=== PATIENT | female | born 1945 | race Caucasian/White ===

== ENCOUNTER 2020-09-06 14:18 | Outpatient (REF) | payer MEDICARE, SELFPAY ==
--- NOTE | ~2020-09-06 | MM_ITS ---
EXAMINATION: MM SCREENING DIGITAL BREAST TOMOSYNTHESIS, BILATERAL CLINICAL INFORMATION: Screening. Asymptomatic. The lifetime risk of breast cancer based on the Tyrer-Cuzick Model is 2.5%. COMPARISON: Mammography: May 28, 2019 and studies dating back to February 13, 2012 TECHNIQUE: Digital breast tomosynthesis is performed in both the craniocaudal and mediolateral oblique views along with computer-aided detection (CAD). Synthesized 2D images are generated from the tomosynthesis. FINDINGS: The breasts are almost entirely fatty (ACR BI-RADS breast composition Category a). There are no significant masses, abnormal calcifications, or other abnormalities. MM/MM tomosynthesis screening BI IMPRESSION: There are no significant changes from prior study. ASSESSMENT: BI-RADS 1: Negative RECOMMENDATION: Routine annual mammography screening. This patient's information was entered into a reminder system with a target due date for their next mammogram.
== END 2020-09-06 14:19 | disposition home or self-care (01) ==
LOC: HO.MAMMO 14:18
PROVIDERS: Visit Provider Internal Medicine
DX: Z12.31 Encounter for screening mammogram for malignant neoplasm of breast (principal)
CPT/HCPCS: 77063; 77067

== ENCOUNTER 2020-09-29 17:57 | Emergency (ER) | payer MEDICARE, SELFPAY ==
[2020-09-29 18:13] VITALS: BP 109/54; PULSE 82; RESP 16; TEMP 36.6; O2SAT 97; BMI 29.2
--- NOTE | 2020-09-29 18:43 | ECG_ITS ---
Test Reason : FALL Blood Pressure : / mmHG Vent. Rate : 082 BPM Atrial Rate : 082 BPM P-R Int : 112 ms QRS Dur : 116 ms QT Int : 402 ms P-R-T Axes : 048 031 030 degrees QTc Int : 469 ms Normal sinus rhythm Right bundle branch block Abnormal ECG When compared with ECG of 06-NOV-2019 19:17, No significant change was found Referred By: You Zamudio Electronically Signed By:DEEPIKA HODGSON MD
--- NOTE | 2020-09-29 18:43 | ED_ITS ---
HPI - Syncope General Chief Complaint: Fall Stated Complaint: Syncope Time Seen by Provider: 09/29/20 18:09 Source: patient and family Mode of arrival: ambulatory Limitations: no limitations History of Present Illness HPI narrative: Patient has significant history of dementia no known coronary artery disease been constipated for last 2 weeks after laxative went to bathroom today to move her bowels had a big bowel movement while having bowel movement patient almost passed out. Within few minutes patient back to normal no chest pain no diaphoresis no vomiting patient never had similar episode in the past MD complaint: felt faint and almost passed out Related Data Home Medications Medication Instructions Recorded Confirmed acetaminophen [Mapap Arthritis 2 tab PO Q8H PRN 09/04/20 09/04/20 Pain] alendronate 1 tab PO QWEEK 09/04/20 09/04/20 aspirin 1 tab PO DAILY 09/04/20 09/04/20 calcium carbonate-vitamin D3 1 tab PO DAILY 09/04/20 09/04/20 donepezil 1 tab PO DAILY 09/04/20 09/04/20 lisinopril-hydrochlorothiazide 1 tab PO DAILY 09/04/20 09/04/20 melatonin 1 tab PO BEDTIME 09/04/20 09/04/20 memantine 1 tab PO BID 09/04/20 09/04/20 multivitamin [Daily-Weston] 1 tab PO DAILY 09/04/20 09/04/20 Previous Rx's Medication Instructions Recorded diclofenac sodium 1 % topical gel 4 g TRANSDERMAL BID PRN #100 g 02/16/20 Allergies Allergy/AdvReac Type Severity Reaction Status Date / Time tuberculin, purified protein Allergy Mild RASH Unverified 01/06/20 17:21 deriva [From TUBERSOL] PPD Allergy Unknown Uncoded 09/23/19 00:00 Review of Systems Review of Systems: Per daughter limited ROS as patient is demented Constitutional : No Weight loss, No Fever, No Chills ENT/Mouth : No sore throat, No Rhinorrhea Eyes: No Eye Pain, No Swelling Cardiovascular : No Chest Pain, no palpitations Respiratory : No Cough, No Sputum, no shortness of breath Gastrointestinal : no Nausea, No Vomiting, No Diarrhea, No abdominal Pain, no black stools Genitourinary : No Dysuria, No Urinary Frequency Musculoskeletal : No joint pain, No Myalgias, No Joint Swelling Skin : No Skin Lesions, No rash Neuro : No Weakness, No Numbness, + Dizziness, No Headache Psych : No Anxiety/Panic, No Depression Heme/Lymph: No Bruising, No Lymphadenopathy Endocrine : No Polyuria, No Polydipsia All other systems reviewed and are negative [facility] Past Medical History Medical History AD (Alzheimer's disease) Arthritis Colon cancer Dementia Depression Diverticulosis Hypertension Surgical History H/O colonoscopy H/O: hysterectomy History of colon surgery Family History Family History Mother Hypertension Diabetes Sister Diabetes Social History Social History Alcohol intake: never Smoked in Last 30 Days: No Advance Directives: No Advance Directives Information Provided: No Physical Exam Vital Signs: Vital Signs: Last Vital Signs Temp 97.9 F 09/29/20 18:13 Pulse 82 09/29/20 18:13 Resp 16 09/29/20 18:13 BP 109/54 L 09/29/20 18:13 Pulse Ox 97 09/29/20 18:13 Body Mass Index 29.2 Appearance: Alert. Oriented X1-2. No acute distress. Eyes: PERRLA, No Nystagmus ENT: Pharynx normal. Oral Mucosa moist Neck: Normal inspection. Neck supple. CVS: Normal heart rate and rhythm. Pulses normal. Respiratory: No respiratory distress. Equal air entry bilateral, no wheezing/rales/rhonchi Abdomen: Soft and nontender. Bowel sounds are present, no mass palpable, no CVA tenderness Skin: Skin warm and dry. Normal skin color. Normal skin turgor. Extremities: No lower extremity edema. No calf tenderness Neuro: Oriented X 1-2. No motor deficit. No sensory deficit.No cerebellar signs , cranial nerves II-XII intact MDM - Syncope MDM Narrative Medical decision making narrative: Patient is syncope episode likely vasovagal secondary to pain in the abdomen while moving the bowels EKG is normal normal troponin patient back to normal will discharge patient home Lab Data Attestation: I reviewed the patient's lab results. Result diagrams: 09/29/20 18:58 09/29/20 18:58 Labs: Lab Results 09/29/20 09/29/20 09/29/20 Range/Units 18:58 18:58 18:58 WBC 10.1 (4.8-10.8) X10*3/uL RBC 4.49 (4.20-5.50) X10*6/uL Hgb 14.0 (12.0-16.0) g/dl Hct 42.8 (37-47) % MCV 95.3 (80-98) fL MCH 31.2 (27.0-33.0) pg MCHC 32.7 (31.0-35.0) g/dl RDW 12.5 (11.0-16.0) % Plt Count 206 (160-400) X10*3/uL MPV 10.6 (9.4-12.3) fL Immature Gran % (Auto) 0.3 (0.0-0.4) % Neut % (Auto) 75.1 H (45-73) % Lymph % (Auto) 14.2 L (20-40) % [place] % (Auto) 7.6 (2-11) % Eos % (Auto) 2.4 (0-4) % Baso % (Auto) 0.4 (0-2) % Lymph # (Auto) 1.4 (1.2-4.9) X10*3/uL [place] # (Auto) 0.8 (0.1-1.2) X10*3/uL Eos # (Auto) 0.2 (0.0-0.4) X10*3/uL Baso # (Auto) 0.0 (0.0-0.2) X10*3/uL Abs Immat Gran (auto) 0.03 (0.00-0.03) X10*3/uL Absolute Neuts (auto) 7.6 (2.0-8.3) X10*3/uL Absolute Nucleated RBC 0.000 (0.0-0.012) X10*3/uL Nucleated RBC % (auto) 0.0 (0.0-0.2) /100WBC Sodium 141 (135-145) mmol/L Potassium 3.5 (3.3-5.1) mmol/L Chloride 107 (96-108) mmol/L Carbon Dioxide 24 (22-29) mmol/L Anion Gap 14 (12-20) BUN 18 H (9-16) mg/dL Creatinine 0.97 (0.5-1.4) mg/dL Estim Creat Clear Calc 48.9 Estimated GFR 56 Random Glucose 107 D (60-115) mg/dL Calcium 8.9 D (8.4-10.2) mg/dL Troponin I High Sens 4.5 (<3.5-17.0) ng/L ECG Data Attestation: I personally reviewed and interpreted this ECG as follows: Interpretation: Normal sinus rhythm heart rate 82 beats per minute and right bundle-branch block no acute ST T wave changes normal axis no ischemia Discharge Plan Discharge Clinical Impression: Vasovagal near-syncope Patient Disposition: Home, Self-Care Instructions: Syncope in Older Adults (ED) Additional Instructions: A passing out episode is likely from the pain in the abdomen while having the bowel movement. Drink plenty of fluids report to the ER if any chest pain or further syncope episode Prescriptions: No Action diclofenac sodium 1 % gel 4 g transdermal BID PRN (Reason: pain) Qty: 100 RF: 4 multivitamin [Daily-Weston] Tablet 1 tab PO DAILY RF: 0 lisinopril-hydrochlorothiazide 20-12.5 mg tablet 1 tab PO DAILY RF: 0 donepezil 10 mg tablet 1 tab PO DAILY RF: 0 alendronate 70 mg tablet 1 tab PO QWEEK RF: 0 calcium carbonate-vitamin D3 600 mg(1,500mg) -200 unit tablet 1 tab PO DAILY RF: 0 aspirin 81 mg tablet,delayed release (DR/EC) 1 tab PO DAILY RF: 0 acetaminophen [Mapap Arthritis Pain] 650 mg tablet extended release 2 tab PO Q8H PRN (Reason: Pain) RF: 0 melatonin 1 mg tablet 1 tab PO BEDTIME RF: 0 memantine 10 mg tablet 1 tab PO BID RF: 0 Print Language: Kyrgyz
[2020-09-29 19:02] LABS: MANUAL DIFF FLAG NO
[2020-09-29 19:06] LABS: Basophils Percent Auto 0.4 % (0-2); Eosinophils Absolute Auto 0.2 X10*3/uL (0.0-0.4); Eosinophils Percent Auto 2.4 % (0-4); Hematocrit 42.8 % (37-47); Imm Gran Abs Auto 0.03 X10*3/uL (0.00-0.03); Imm Gran Pct Auto 0.3 % (0.0-0.4); Lymphocytes Absolute Auto 1.4 X10*3/uL (1.2-4.9); Lymphocytes Percent Auto 14.2 % (20-40); Mean Corpuscular HGB Conc 32.7 g/dl (31.0-35.0); Mean Corpuscular Hemoglobin 31.2 pg (27.0-33.0); Mean Corpuscular Volume 95.3 fL (80-98); Mean Platelet Volume 10.6 fL (9.4-12.3); Monocytes Absolute Auto 0.8 X10*3/uL (0.1-1.2); Monocytes Percent Auto 7.6 % (2-11); Neutrophils Absolute Auto 7.6 X10*3/uL (2.0-8.3); Neutrophils Percent Auto 75.1 % (45-73); Platelet Count 206 X10*3/uL (160-400); Red Blood Count 4.49 X10*6/uL (4.20-5.50); Red Cell Distribution Width 12.5 % (11.0-16.0); White Blood Count 10.1 X10*3/uL (4.8-10.8)
[2020-09-29 19:34] LABS: Anion Gap 14 (12-20); Blood Urea Nitrogen 18 mg/dL (9-16); Calcium 8.9 mg/dL (8.4-10.2); Carbon Dioxide 24 mmol/L (22-29); Chloride 107 mmol/L (96-108); Creatinine Clr Calc Pharmacy 48.9; Estimated Glomerular Filt Rate 56; Glucose Random 107 mg/dL (60-115); Potassium 3.5 mmol/L (3.3-5.1); Sodium 141 mmol/L (135-145)
[2020-09-29 19:40] LABS: Troponin-I High Sensitivity 4.5 ng/L (<3.5-17.0)
[2020-09-29 20:00] VITALS: BP 121/65; PULSE 73; RESP 23; TEMP 36.9; O2SAT 98
== END 2020-09-29 20:15 | disposition home or self-care (01) ==
PROVIDERS: Emergency Provider Internal Medicine
DX: R55 Syncope and collapse (principal); G30.9 Alzheimer's disease, unspecified; F02.80 Dementia in other diseases classified elsewhere, unspecified severity, without behavioral disturbance, psychotic disturbance, mood disturbance, and anxiety; I10 Essential (primary) hypertension
CPT/HCPCS: 36415; 80048; 84484; 85025; 93005; 99283; 99284

== ENCOUNTER 2021-01-15 12:32 | Inpatient (IN) | payer MEDICARE, SELFPAY ==
--- NOTE | ~2021-01-15 | CT_ITS ---
EXAMINATION: CT ABDOMEN AND PELVIS WITH CONTRAST CLINICAL INFORMATION: Right upper quadrant pain COMPARISON: Renal ultrasound 01/15/2017, CT abdomen pelvis 07/16/2012, CT abdomen with and without contrast 10/29/2006 TECHNIQUE: Multidetector volumetric images were obtained from the superior aspect of the liver through the pubic symphysis following administration 85 mL of Omnipaque 350 intravenous contrast. Sagittal and coronal reformatted images were obtained on the technologist's workstation. Oral contrast: No This CT examination was performed using dose optimization techniques as appropriate, variously including the following: *Automated exposure control *Adjustment of mA and/or kV according to patient size (this includes techniques or standardized protocols for targeted exams where dose is matched to indication/reason for exam; i.e. extremities or head) *Use of iterative reconstruction technique DLP: 528 mGy-cm FINDINGS: LUNG BASES: There is partial visualization of scarring or round atelectasis at the right lung base laterally which has increased in size from 9 mm on 07/16/2012 to 1.3 cm today. LIVER, GALLBLADDER, AND BILIARY TREE: The liver is normal in size, shape, and attenuation. 2 calcified granulomas again noted. No worrisome focal hepatic lesion or biliary ductal dilatation is present. Status post cholecystectomy. PANCREAS: Unremarkable. SPLEEN: Unremarkable. ADRENAL GLANDS: Unremarkable. KIDNEYS AND URETERS: The kidneys are normal in size, shape, and attenuation. The right upper pole renal cyst has dramatically decreased in size since the prior renal ultrasound in 2016 when this measured 13.5 cm in maximal dimension and on today's study measures 5.2 cm. No solid renal masses are seen No hydronephrosis, hydroureter, or calculi seen. No perinephric stranding. BLADDER: Unremarkable. GASTROINTESTINAL TRACT: Status post right partial hemicolectomy. Colonic diverticula are present without diverticulitis. The small and remaining large bowel are unremarkable. The appendix is is not present. ABDOMINAL WALL: No significant hernia is appreciated. LYMPH NODES: No retroperitoneal lymphadenopathy. VASCULAR: Calcific plaquing present in the infrarenal aorta and iliac vessels without aneurysm. PELVIC VISCERA: Surgically removed OSSEOUS STRUCTURES: Generalized osteopenia is present. Vertebral hemangiomas are again seen. No bony metastatic disease. CT/CT abdomen pelvis w con IMPRESSION: 1. Dramatic decrease in size of right upper pole benign renal cyst. Could this have ruptured? No free intraperitoneal fluid is present. 2. Again seen is an area of round atelectasis right lung increasing in size since 2013 hepatic granulomas, cholecystectomy, right hemicolectomy, colonic diverticulosis without diverticulitis and generalized osteopenia.
--- NOTE | ~2021-01-15 | XR_ITS ---
EXAMINATION: XR CHEST CLINICAL INFORMATION: Cough. COMPARISON: None TECHNIQUE: Frontal view of the chest was obtained. FINDINGS: There is normal thoracic kyphosis. The vertebral heights, alignment and disc heights are normal. There is moderate spondylosis mid dorsal spine. No lytic process. The paravertebral soft tissues are normal. XR/XR chest 1V IMPRESSION: No acute cardiopulmonary process seen. There is moderate spondylosis mid dorsal spine.
[2021-01-15 13:34] VITALS: BP 94/73; PULSE 104; RESP 17; TEMP 36; BMI 27.9
--- NOTE | 2021-01-15 13:54 | ED.WEAKNESS ---
HPI - Weakness General Chief complaint: General Medical Stated complaint: FTT Time Seen by Provider: 01/15/21 13:53 Source: patient and family Mode of arrival: ambulatory Limitations: other (Patient altered, unable to answer any questions.) History of Present Illness HPI Narrative: 75-year-old female with a past medical history of colon cancer, hypertension and dementia presents to the emergency department with 4 days of failure to thrive. She is accompanied by her daughter at the bedside who is answering all questions, since patient is unable to answer any questions. She states that for the past 4 days her mother has not been eating or drinking. She also reports that she has had a productive cough of white sputum for the past 4 days, and sometimes she coughs so hard that she vomits. She also notes that her mom has been complaining of right upper quadrant pain/rib pain, she states she has not fallen, and has had no trauma to the area. Over the past week or so, she has also noted that her mom's urine is darker than usual, but she has not noted a strong smell. She has been vaccinated against COVID-19, and her daughter is her primary healthcare economics consultant. According to the daughter she is usually able to say her name, and at times recognize close family. However she has been altered and unable to do this over the past few days MD Complaint: lack of energy Onset (ago): day(s) (4) Duration: constant Location: generalized Relieving factors: none Exacerbating factors: none Associated symptoms: nausea/vomiting (X1 post coughing ) and other (RUQ abdominal pain/rib pain, cough) Related Data Home Medications Medication Instructions Recorded Confirmed alendronate 70 mg tablet 1 tab PO QWEEK 09/04/20 01/15/21 aspirin 81 mg tablet,delayed 1 tab PO DAILY 09/04/20 01/15/21 release calcium carbonate 600 mg (1,500 1 tab PO DAILY 09/04/20 01/15/21 mg)-vitamin D3 200 unit tablet donepezil 10 mg tablet 1 tab PO DAILY 09/04/20 01/15/21 lisinopril 20 1 tab PO DAILY 09/04/20 01/15/21 mg-hydrochlorothiazide 12.5 mg tablet melatonin 1 mg tablet 1 tab PO BEDTIME PRN 09/04/20 01/15/21 memantine 10 mg tablet 1 tab PO BID 09/04/20 01/15/21 multivitamin (Daily-Weston) 1 tab PO DAILY 09/04/20 01/15/21 mirtazapine 7.5 mg tablet 1 tab PO BEDTIME 01/15/21 01/15/21 Allergies Allergy/AdvReac Type Severity Reaction Status Date / Time tuberculin, purified protein Allergy Mild RASH Unverified 01/06/20 17:21 deriva [From TUBERSOL] PPD Allergy Unknown Uncoded 09/23/19 00:00 Review of Systems Review of Systems: Constitutional : No Fever, No Chills, +faliure to thrive ENT/Mouth : No oral swelling, No Swallowing Difficulty Eyes: No Eye Pain, No Swelling, No Redness Cardiovascular : No Chest Pain, No SOB Respiratory : + Cough, + Sputum, No Wheezing, No Smoke Exposure, No Dyspnea Gastrointestinal : No Nausea, + Vomiting, No Diarrhea, + abdominal Pain RUQ Genitourinary : No Dysuria, No Urinary Frequency, No Hematuria, +dark urine Musculoskeletal : No joint pain, No Myalgias, No Joint Swelling Skin : No Skin Lesions, positive rash Neuro : No Weakness, No Numbness, No Headache All other systems reviewed and are negative PMFSH Past Medical History Medical History AD (Alzheimer's disease) Arthritis Colon cancer Dementia Depression Diverticulosis Hypertension Surgical History H/O colonoscopy H/O: hysterectomy History of colon surgery Family History Family History Mother Hypertension Diabetes Sister Diabetes Social History Social History Alcohol intake: never Patient Tobacco Use Status: Tobacco use Unknown Use of substances other than those prescribed or required for medical reasons: Unknown Advance Directives: Yes Advance Directives Information Provided: Yes Advance Directives on File: No Physical Exam Vital Signs: Vital Signs: Last Vital Signs Temp 96.8 F 01/15/21 13:34 Pulse 104 H 01/15/21 13:34 Resp 17 01/15/21 13:34 BP 94/73 01/15/21 13:34 Body Mass Index 27.9 Appearance: Alert. patient calm and disoriented unable to tell me her name or date of . No acute distress. Eyes: Pupils equal, round and reactive to light. ENT: Pharynx normal. Neck: Normal inspection. Neck supple. CVS: Fast regular rhythm likley sinus tachycardia. Pulses normal. Respiratory: No respiratory distress. Breath sounds normal. Abdomen: Soft and + tenderness to the right upper quadrant ? lipoma under right breast Skin: Skin warm and dry. Normal skin color. Normal skin turgor. Extremities: No lower extremity edema. No calf ttp Neuro: Oriented X 3. No motor deficit. No sensory deficit. Course Course Course Narrative: 1523- patients lactic 2.9 hydrated with 2L of fluid lactic acidosis likely due to dehydration and not infection or severe sepsis signed out pending further workup to Dr. Stinson MDM - Weakness MDM Narrative Medical decision making narrative: 75-year-old female past medical history of dementia, hypertension presenting to the emergency department with 4 days of failure to thrive, anorexia and productive cough. Patient's daughter is at the bedside which provided us with information, she states that her daughter told her she is experiencing right upper quadrant pain but did not say much more. She has not eaten or drank over the past 4 days. She also reports episodes of post-tussive emesis. And her daughter states that her mom's urine has been darker than usual over the past week. She lives at home, and her daughters her primary healthcare economics consultant Plan- EKG, Straight cath, CT of abd/pelvis with contrast, CXR, bnp, lactic, cultures, liver, UA, BMP, CBC, covid, lipase, mag, trop. Lab Data Result diagrams: 01/15/21 14:32 01/15/21 15:10 Labs: Lab Results 01/15/21 01/15/21 01/15/21 Range/Units 14:32 14:32 14:32 WBC 6.9 (4.8-10.8) X10*3/uL RBC 5.51 H D (4.20-5.50) X10*6/uL Hgb 16.8 H (12.0-16.0) g/dl Hct 52.8 H D (37-47) % MCV 95.8 (80-98) fL MCH 30.5 (27.0-33.0) pg MCHC 31.8 (31.0-35.0) g/dl RDW 13.9 (11.0-16.0) % Plt Count 180 (160-400) X10*3/uL MPV 12.2 (9.4-12.3) fL Immature Gran % (Auto) 0.4 (0.0-0.4) % Neut % (Auto) 57.3 (45-73) % Lymph % (Auto) 26.7 (20-40) % [place] % (Auto) 9.1 (2-11) % Eos % (Auto) 5.8 H (0-4) % Baso % (Auto) 0.7 (0-2) % Lymph # (Auto) 1.9 (1.2-4.9) X10*3/uL [place] # (Auto) 0.6 (0.1-1.2) X10*3/uL Eos # (Auto) 0.4 (0.0-0.4) X10*3/uL Baso # (Auto) 0.1 (0.0-0.2) X10*3/uL Abs Immat Gran (auto) 0.03 (0.00-0.03) X10*3/uL Absolute Neuts (auto) 4.0 (2.0-8.3) X10*3/uL Absolute Nucleated RBC 0.000 (0.0-0.012) X10*3/uL Nucleated RBC % (auto) 0.0 (0.0-0.2) /100WBC Sodium (135-145) mmol/L Potassium (3.3-5.1) mmol/L Chloride (96-108) mmol/L Carbon Dioxide (22-29) mmol/L Anion Gap (12-20) BUN (9-16) mg/dL Creatinine (0.5-1.4) mg/dL Estim Creat Clear Calc Estimated GFR Random Glucose (60-115) mg/dL Lactic Acid 2.9 H* (0.5-2.0) mmol/L Calcium (8.4-10.2) mg/dL Magnesium (1.6-2.6) mg/dL Total Bilirubin (0.0-1.0) mg/dL Direct Bilirubin (0.0-0.5) mg/dL AST (5-31) U/L ALT (0-31) U/L Alkaline Phosphatase (39-117) U/L Troponin I High Sens 7.6 D (<3.5-17.0) ng/L B-Natriuretic Peptide 22 (<100) pg/mL Total Protein (6.5-8.0) g/dL Albumin (3.5-5.0) g/dL Lipase (8-78) U/L COVID-19 ([facility]URNET) (Negative) COVID-19 Clin Com 01/15/21 01/15/21 01/15/21 Range/Units 14:32 14:32 15:10 WBC (4.8-10.8) X10*3/uL RBC (4.20-5.50) X10*6/uL Hgb (12.0-16.0) g/dl Hct (37-47) % MCV (80-98) fL MCH (27.0-33.0) pg MCHC (31.0-35.0) g/dl RDW (11.0-16.0) % Plt Count (160-400) X10*3/uL MPV (9.4-12.3) fL Immature Gran % (Auto) (0.0-0.4) % Neut % (Auto) (45-73) % Lymph % (Auto) (20-40) % [place] % (Auto) (2-11) % Eos % (Auto) (0-4) % Baso % (Auto) (0-2) % Lymph # (Auto) (1.2-4.9) X10*3/uL [place] # (Auto) (0.1-1.2) X10*3/uL Eos # (Auto) (0.0-0.4) X10*3/uL Baso # (Auto) (0.0-0.2) X10*3/uL Abs Immat Gran (auto) (0.00-0.03) X10*3/uL Absolute Neuts (auto) (2.0-8.3) X10*3/uL Absolute Nucleated RBC (0.0-0.012) X10*3/uL Nucleated RBC % (auto) (0.0-0.2) /100WBC Sodium 151 H (135-145) mmol/L Potassium 3.6 (3.3-5.1) mmol/L Chloride 113 H (96-108) mmol/L Carbon Dioxide 22 (22-29) mmol/L Anion Gap 20 (12-20) BUN 29 H D (9-16) mg/dL Creatinine 0.91 (0.5-1.4) mg/dL Estim Creat Clear Calc 52.8 Estimated GFR 60 Random Glucose 95 (60-115) mg/dL Lactic Acid (0.5-2.0) mmol/L Calcium 9.6 D (8.4-10.2) mg/dL Magnesium 2.1 (1.6-2.6) mg/dL Total Bilirubin 1.0 (0.0-1.0) mg/dL Direct Bilirubin 0.5 (0.0-0.5) mg/dL AST 17 (5-31) U/L ALT 9 (0-31) U/L Alkaline Phosphatase 65 D (39-117) U/L Troponin I High Sens (<3.5-17.0) ng/L B-Natriuretic Peptide Cancelled (<100) pg/mL Total Protein 6.8 (6.5-8.0) g/dL Albumin 4.1 (3.5-5.0) g/dL Lipase 36 (8-78) U/L COVID-19 ([facility]URENT) Negative (Negative) COVID-19 Clin Com See Note ECG Data Attestation: I personally reviewed and interpreted this ECG as follows: ECG interpretation date: 01/15/21 ECG interpretation time: 14:24 Interpretation: Rate: 80 Rhythm: NSR [place]: normal Normal P waves. Normal LARA. incomplete RBBB ST T wave : inverted inf leads, no JAREN qTC: normal prior studies: no acute ischemia The study has been interpreted contemporaneously by me. . Discharge Plan Discharge Clinical Impression: Acute dehydration, Adult failure to thrive, Acidosis, lactic Prescriptions: No Action multivitamin [Daily-Weston] Tablet 1 tab PO DAILY RF: 0 lisinopril-hydrochlorothiazide 20-12.5 mg tablet 1 tab PO DAILY RF: 0 donepezil 10 mg tablet 1 tab PO DAILY RF: 0 alendronate 70 mg tablet 1 tab PO QWEEK RF: 0 calcium carbonate-vitamin D3 600 mg(1,500mg) -200 unit tablet 1 tab PO DAILY RF: 0 aspirin 81 mg tablet,delayed release (/EC) 1 tab PO DAILY RF: 0 melatonin 1 mg tablet 1 tab PO BEDTIME PRN (Reason: Sleep) RF: 0 memantine 10 mg tablet 1 tab PO BID RF: 0 mirtazapine 7.5 mg tablet 1 tab PO BEDTIME RF: 0
--- NOTE | 2021-01-15 14:01 | ECG_ITS ---
Test Reason : FALL Blood Pressure : / mmHG Vent. Rate : 080 BPM Atrial Rate : 080 BPM P-R Int : 120 ms QRS Dur : 102 ms QT Int : 402 ms P-R-T Axes : 058 014 -20 degrees QTc Int : 463 ms Normal sinus rhythm Incomplete right bundle branch block ST & T wave abnormality, consider inferior ischemia Abnormal ECG When compared with ECG of 29-SEP-2020 19:04, T wave inversion now evident in Inferior leads Referred By: Lyndsay Velarde Electronically Signed By:IDA WU
[2021-01-15] MEDS: 0.9 % Sodium Chloride 1,000 ML 999 ML IVCONT ×2 (14:43→18:27)
[2021-01-15 14:44] LABS: MANUAL DIFF FLAG NO
--- NOTE | 2021-01-15 14:44 | PC.NURSE ---
Pt is primarily ugandan speaking and is confused per family member in the room. IV established and labs sent. However, unable to get pt on property assessment monitor or straight cath her for a urine. Pt flailing her arms with any further attempt to care. Pt's family member remains at the bedside and NS is infusing.
[2021-01-15 14:47] LABS: Basophils Absolute Auto 0.1 X10*3/uL (0.0-0.2); Basophils Percent Auto 0.7 % (0-2); Eosinophils Absolute Auto 0.4 X10*3/uL (0.0-0.4); Eosinophils Percent Auto 5.8 % (0-4); Hematocrit 52.8 % (37-47); Hemoglobin 16.8 g/dl (12.0-16.0); Imm Gran Abs Auto 0.03 X10*3/uL (0.00-0.03); Imm Gran Pct Auto 0.4 % (0.0-0.4); Lymphocytes Absolute Auto 1.9 X10*3/uL (1.2-4.9); Lymphocytes Percent Auto 26.7 % (20-40); Mean Corpuscular HGB Conc 31.8 g/dl (31.0-35.0); Mean Corpuscular Hemoglobin 30.5 pg (27.0-33.0); Mean Corpuscular Volume 95.8 fL (80-98); Mean Platelet Volume 12.2 fL (9.4-12.3); Monocytes Absolute Auto 0.6 X10*3/uL (0.1-1.2); Monocytes Percent Auto 9.1 % (2-11); Neutrophils Percent Auto 57.3 % (45-73); Platelet Count 180 X10*3/uL (160-400); Red Blood Count 5.51 X10*6/uL (4.20-5.50); Red Cell Distribution Width 13.9 % (11.0-16.0); White Blood Count 6.9 X10*3/uL (4.8-10.8)
[2021-01-15 15:08] LABS: B Type Natriuretic Peptide 22 pg/mL (<100); Troponin-I High Sensitivity 7.6 ng/L (<3.5-17.0)
[2021-01-15 15:13] LABS: COVID-19 Test Negative (Negative)
[2021-01-15 15:14] LABS: Lactic Acid 2.9 mmol/L (0.5-2.0)
--- NOTE | 2021-01-15 15:37 | PHA.MEDREC ---
Pharmacy Consult ? Medication Reconciliation Pharmacy has completed the medication reconciliation. spoke to family member at bedside. Pt has dementia. Verified meds with family, except she did not know the day of the week for the alendronate.
[2021-01-15 15:57] LABS: Alanine Aminotransferase 9 U/L (0-31); Albumin Level 4.1 g/dL (3.5-5.0); Alkaline Phosphatase 65 U/L (39-117); Anion Gap 20 (12-20); Aspartate Amino Transferase 17 U/L (5-31); Bilirubin Direct 0.5 mg/dL (0.0-0.5); Blood Urea Nitrogen 29 mg/dL (9-16); Calcium 9.6 mg/dL (8.4-10.2); Carbon Dioxide 22 mmol/L (22-29); Chloride 113 mmol/L (96-108); Creatinine Clr Calc Pharmacy 52.8; Estimated Glomerular Filt Rate 60; Glucose Random 95 mg/dL (60-115); Lipase 36 U/L (8-78); Magnesium 2.1 mg/dL (1.6-2.6); Potassium 3.6 mmol/L (3.3-5.1); Sodium 151 mmol/L (135-145); Total Protein 6.8 g/dL (6.5-8.0)
[2021-01-15 16:37] LABS: Appearance Urine CLEAR; Color Urine DK YELLOW; Glucose Urine UA NEG (NEG); Leukocyte Esterase Urine NEG (NEG); Nitrite Urine NEG (NEG); Specific Gravity - Urine >= 1.030 (1.005-1.025); UACC Culture Trigger NO; Urine Blood NEG (NEG); Urine Ketones 40 MG/DL (NEG); Urine Protein 2+ MG/DL (NEG-TRACE)
[2021-01-15 16:37] LABS: Reflex Lactate? Lactic Acid Added
[2021-01-15 16:47] LABS: Bacteria Urine 3+ /LPF; Squamous Epithelial Cell Urine 1+ /LPF
[2021-01-15 16:48] LABS: Calcium Oxalate Crystals Urine TRACE /LPF
[2021-01-15 16:49] LABS: Amorphous Sediment Urine TRACE /LPF; Granular Casts Urine 0-2 /LPF
[2021-01-15 17:03] LABS: ~Lactic Acid-LAB USE ONLY 1.8 mmol/L (0.5-2.0)
[2021-01-15] MEDS: iohexoL 350 MG/ML 100 ML INFUS..BTL IV (17:12)
[2021-01-15 17:26] VITALS: BP 143/71; PULSE 66; RESP 18; O2SAT 100
--- NOTE | 2021-01-15 17:27 | PM.IMHP ---
History of Present Illness Date of Service: 01/15/21 Attending physician on admission: Anup Grimaldo Chief Complaint: FTT/Hyperglycemia 75-year-old female presents with poor p.o. intake and high sodium in the backdrop of known Alzheimer's dementia. She is [place]ian-speaking, but when spoke with daughter states mom over the last 4 days has decreased her p.o. intake and has gotten more lethargic. She did complain of some mild diffuse abdominal pain at home (CT pending). In the emergency room laboratory evaluation significant for sodium 151 for which she received 1 L half normal saline. At this time admission is requested Review of Systems Review of Systems: Denies chest pain Denies shortness of breath Denies nausea vomiting diarrhea PMFSH Medical History AD (Alzheimer's disease) Arthritis Colon cancer Dementia Depression Diverticulosis Hypertension Family History Mother Hypertension Diabetes Sister Diabetes Pertinent family history: . Surgical History H/O colonoscopy H/O: hysterectomy History of colon surgery Social History Alcohol intake: never Patient Tobacco Use Status: Tobacco use Unknown Use of substances other than those prescribed or required for medical reasons: Unknown Advance Directives: Yes Advance Directives Information Provided: Yes Advance Directives on File: No Meds Allergies Allergy/AdvReac Type Severity Reaction Status Date / Time tuberculin, purified protein Allergy Mild RASH Unverified 01/06/20 17:21 deriva [From TUBERSOL] PPD Allergy Unknown Uncoded 09/23/19 00:00 Active Medications: Current Medications Pharmacy Consult (Consult Rx Perform Med Rec) 1 each MISCELLANE ONCE PRN PRN Reason: Consult order Home Medications Medication Instructions Recorded Confirmed Last Taken Type alendronate 70 mg tablet 1 tab PO QWEEK 09/04/20 01/15/21 Unknown History aspirin 81 mg tablet,delayed 1 tab PO DAILY 09/04/20 01/15/21 Unknown History release calcium carbonate 600 mg (1,500 1 tab PO DAILY 09/04/20 01/15/21 Unknown History mg)-vitamin D3 200 unit tablet donepezil 10 mg tablet 1 tab PO DAILY 09/04/20 01/15/21 Unknown History lisinopril 20 1 tab PO DAILY 09/04/20 01/15/21 Unknown History mg-hydrochlorothiazide 12.5 mg tablet melatonin 1 mg tablet 1 tab PO BEDTIME PRN 09/04/20 01/15/21 Unknown History memantine 10 mg tablet 1 tab PO BID 09/04/20 01/15/21 Unknown History multivitamin (Daily-[facility]on) 1 tab PO DAILY 09/04/20 01/15/21 Unknown History mirtazapine 7.5 mg tablet 1 tab PO BEDTIME 01/15/21 01/15/21 Unknown History Physical Exam Vital Signs and Narrative: Vital Signs: Last Vital Signs Temp 96.8 F 01/15/21 13:34 Pulse 66 01/15/21 17:26 Resp 18 01/15/21 17:26 BP 143/71 H 01/15/21 17:26 Pulse Ox 100 01/15/21 17:26 Body Mass Index 27.9 Const: Other: She is awake and responding to the daughter in [place]ian. She appears in no acute distress HENMT: Other: Oropharynx dry; posterior pharynx clear Resp: Auscultation: clear to auscultation bilaterally, no rales, no rhonchi and no wheezes Cardio: Jugular venous distension: no JVD Rate: regular rate Rhythm: regular rhythm Heart sounds: S1 normal heart sound present, S2 normal heart sound present and no murmurs GI: Other: Soft nontender nondistended with normoactive bowel sounds. There is no appreciable hepatosplenomegaly. There are no acute peritoneal signs Neuro: Other: [place]ian-speaking; move in all extremities with purpose interacting appropriately with daughter Extrem: General: Yes normal to inspection Results Labs CBC and Chem 7: 01/15/21 14:32 01/15/21 15:10 Labs: Laboratory Results - last 24 hr 01/15/21 01/15/21 01/15/21 14:32 14:32 14:32 MCV 95.8 MCH 30.5 MCHC 31.8 RDW 13.9 Plt Count 180 MPV 12.2 Immature Gran % (Auto) 0.4 Neut % (Auto) 57.3 Lymph % (Auto) 26.7 [place] % (Auto) 9.1 Eos % (Auto) 5.8 H Baso % (Auto) 0.7 Lymph # (Auto) 1.9 [place] # (Auto) 0.6 Eos # (Auto) 0.4 Baso # (Auto) 0.1 Abs Immat Gran (auto) 0.03 Absolute Neuts (auto) 4.0 Absolute Nucleated RBC 0.000 Nucleated RBC % (auto) 0.0 Anion Gap Estim Creat Clear Calc Estimated GFR Random Glucose Lactic Acid 2.9 H* Lactic Acid Fup @ 2Hr Calcium Magnesium Total Bilirubin Direct Bilirubin AST ALT Alkaline Phosphatase Troponin I High Sens 7.6 D B-Natriuretic Peptide 22 Total Protein Albumin Lipase Urine Color Urine Appearance Urine pH Ur Specific [place] Urine Protein Urine Glucose (UA) Urine Ketones Urine Blood Urine Nitrite Ur Leukocyte Esterase Urine RBC Urine WBC Ur Squamous Epith Cells Calcium Oxalate Crystal Amorphous Sediment Urine Bacteria Granular Casts COVID-19 ([facility]) COVID-19 Clin Com 01/15/21 01/15/21 01/15/21 14:32 14:32 14:33 MCV MCH MCHC RDW Plt Count MPV Immature Gran % (Auto) Neut % (Auto) Lymph % (Auto) [place] % (Auto) Eos % (Auto) Baso % (Auto) Lymph # (Auto) [place] # (Auto) Eos # (Auto) Baso # (Auto) Abs Immat Gran (auto) Absolute Neuts (auto) Absolute Nucleated RBC Nucleated RBC % (auto) Anion Gap Estim Creat Clear Calc Estimated GFR Random Glucose Lactic Acid Lactic Acid Fup @ 2Hr Calcium Magnesium Total Bilirubin Direct Bilirubin AST ALT Alkaline Phosphatase Troponin I High Sens B-Natriuretic Peptide Cancelled Total Protein Albumin Lipase Urine Color DK YELLOW Urine Appearance CLEAR Urine pH 6.0 Ur Specific [place] >= 1.030 H Urine Protein 2+ H Urine Glucose (UA) NEG Urine Ketones 40 Urine Blood NEG Urine Nitrite NEG Ur Leukocyte Esterase NEG Urine RBC 1-4 Urine WBC 1-4 Ur Squamous Epith Cells 1+ Calcium Oxalate Crystal TRACE Amorphous Sediment TRACE Urine Bacteria 3+ Granular Casts 0-2 COVID-19 ([facility]ENT) Negative COVID-19 Clin Com See Note 01/15/21 01/15/21 15:10 16:46 MCV MCH MCHC RDW Plt Count MPV Immature Gran % (Auto) Neut % (Auto) Lymph % (Auto) [place] % (Auto) Eos % (Auto) Baso % (Auto) Lymph # (Auto) [place] # (Auto) Eos # (Auto) Baso # (Auto) Abs Immat Gran (auto) Absolute Neuts (auto) Absolute Nucleated RBC Nucleated RBC % (auto) Anion Gap 20 Estim Creat Clear Calc 52.8 Estimated GFR 60 Random Glucose 95 Lactic Acid Lactic Acid Fup @ 2Hr 1.8 Calcium 9.6 D Magnesium 2.1 Total Bilirubin 1.0 Direct Bilirubin 0.5 AST 17 ALT 9 Alkaline Phosphatase 65 D Troponin I High Sens B-Natriuretic Peptide Total Protein 6.8 Albumin 4.1 Lipase 36 Urine Color Urine Appearance Urine pH Ur Specific [place] Urine Protein Urine Glucose (UA) Urine Ketones Urine Blood Urine Nitrite Ur Leukocyte Esterase Urine RBC Urine WBC Ur Squamous Epith Cells Calcium Oxalate Crystal Amorphous Sediment Urine Bacteria Granular Casts COVID-19 ([facility]ENT) COVID-19 Clin Com Imaging Radiologist's Impressions: Impressions Chest X-Ray 01/15/21 14:02 IMPRESSION: No acute cardiopulmonary process seen. There is moderate spondylosis mid dorsal spine. Assessment and Plan (1) Adult failure to thrive: Status: Acute (2) Hypernatremia: Status: Acute 70 seconds urine year old female with known history of dementia status post colon cancer with chemotherapy presents with decreased p.o. intake over the last 4 days with increasing confusion. Emergency room workup consistent for a sodium 151. CT abdomen pending 1. Hypernatremia Given 1 L of half normal saline in the emergency room. Will continue the same overnight at 100 an hour check labs in the morning. Encourage p.o. intake 2. Dementia Continue outpatient therapies 3. Hypertension Continue outpatient therapies. 4. DVT prophylaxis Venodyne boots... Full code Further plans based on clinical course and response to therapies Quality Stroke Does the patient have a stroke diagnosis?: No VTE Prior VTE?: No VTE Risk Level:: Medical - moderate - high VTE Device Contraindication: N/A - Device Ordered VTE Drug Contraindication: Treatment Not Indicated
[2021-01-15 18:47] VITALS: BP 148/115; PULSE 69; RESP 17; TEMP 36.5; O2SAT 96
[2021-01-15 19:38] VITALS: BP 142/88; PULSE 78; RESP 15; TEMP 36.2; O2SAT 93
[2021-01-15] MEDS: Sodium Chloride 0.45 % 1,000 ML 100 ML IVCONT (20:24)
[2021-01-16] VITALS: BP 147/83; PULSE 58; RESP 15; TEMP 36.2; O2SAT 99
[2021-01-16 03:54] VITALS: BP 146/72; PULSE 59; RESP 15; TEMP 36; O2SAT 100
[2021-01-16 05:30] LABS: MANUAL DIFF FLAG NO
[2021-01-16 05:34] LABS: Basophils Absolute Auto 0.1 X10*3/uL (0.0-0.2); Basophils Percent Auto 0.6 % (0-2); Eosinophils Percent Auto 12.8 % (0-4); Hematocrit 46.2 % (37-47); Imm Gran Abs Auto 0.04 X10*3/uL (0.00-0.03); Imm Gran Pct Auto 0.5 % (0.0-0.4); Lymphocytes Absolute Auto 2.8 X10*3/uL (1.2-4.9); Lymphocytes Percent Auto 35.8 % (20-40); Mean Corpuscular HGB Conc 32.5 g/dl (31.0-35.0); Mean Corpuscular Hemoglobin 30.8 pg (27.0-33.0); Mean Corpuscular Volume 94.9 fL (80-98); Mean Platelet Volume 12.2 fL (9.4-12.3); Monocytes Absolute Auto 0.8 X10*3/uL (0.1-1.2); Monocytes Percent Auto 9.9 % (2-11); Neutrophils Absolute Auto 3.1 X10*3/uL (2.0-8.3); Neutrophils Percent Auto 40.4 % (45-73); Platelet Count 141 X10*3/uL (160-400); Red Blood Count 4.87 X10*6/uL (4.20-5.50); Red Cell Distribution Width 13.8 % (11.0-16.0); White Blood Count 7.8 X10*3/uL (4.8-10.8)
[2021-01-16] MEDS: Sodium Chloride 0.45 % 1,000 ML 100 ML IVCONT (05:47)
[2021-01-16 05:54] LABS: Anion Gap 17 (12-20); Blood Urea Nitrogen 19 mg/dL (9-16); Calcium 8.7 mg/dL (8.4-10.2); Carbon Dioxide 20 mmol/L (22-29); Chloride 111 mmol/L (96-108); Creatinine Clr Calc Pharmacy 69.7; Estimated Glomerular Filt Rate > 60; Glucose Random 72 mg/dL (60-115); Potassium 3.1 mmol/L (3.3-5.1); Sodium 145 mmol/L (135-145)
[2021-01-16 07:24] VITALS: BP 146/80; PULSE 61; RESP 18; TEMP 36.1; O2SAT 100
--- NOTE | 2021-01-16 10:04 | P.PNIM_ITS ---
Subjective Subjective Date of Service: 01/16/21 Interval History: No acute issues overnight. Tolerating IV fluids. Continues to refuse oral fluids/medication. Are daughter at bedside since admission yes Review of Systems Denies chest pain Denies shortness of breath Denies nausea vomiting diarrhea Physical Exam Vital Signs: Vital Signs: Last Vital Signs Temp 97.0 F 01/16/21 07:24 Pulse 61 01/16/21 07:24 Resp 18 01/16/21 07:24 BP 146/80 H 01/16/21 07:24 Pulse Ox 100 01/16/21 07:24 Body Mass Index 27.9 Const: Other: She is awake and responding to the daughter in Colombian. She appears in no acute distress HENMT: Other: Membranes moist this a.m. Resp: Auscultation: clear to auscultation bilaterally, no rales, no rhonchi and no wheezes Cardio: Jugular venous distension: no JVD Rate: regular rate Rhythm: regular rhythm Heart sounds: S1 normal heart sound present, S2 normal heart sound present and no murmurs GI: Other: Soft nontender nondistended with normoactive bowel sounds. There is no appreciable hepatosplenomegaly. There are no acute peritoneal signs Neuro: Other: Colombian-speaking; move in all extremities with purpose interacting appropriately with daughter Extrem: General: Yes normal to inspection Objective Data Active Medications Acetaminophen (Acetaminophen 325 Mg Tablet) 650 mg PO Q6H PRN PRN Reason: Pain, Mild (Pain Scale 1-3) Aspirin (Aspirin Enteric Coated 81 Mg Tablet.) 81 mg PO DAILY [facility] Last Admin: 01/16/21 08:40 Dose: Not Given Documented by: XIAO Non-Admin Reason: Patient Refused Calcium Carbonate/Cholecalciferol (Calcium + Vitamin D 250 Mg Tablet) 500 mg PO DAILY [facility] Last Admin: 01/16/21 08:40 Dose: Not Given Documented by: XIAO Non-Admin Reason: Patient Refused Donepezil HCl (Donepezil Hcl 10 Mg Tablet) 10 mg PO DAILY [facility] Last Admin: 01/16/21 08:39 Dose: Not Given Documented by: XIAO Non-Admin Reason: Patient Refused Sodium Chloride () 1,000 mls @ 100 mls/hr IVCONT .Q10H [facility] Last Admin: 01/16/21 05:47 Dose: 100 mls/hr Documented by: STALIN Lisinopril (Lisinopril 20 Mg Tablet) 20 mg PO DAILY [facility] Last Admin: 01/16/21 08:39 Dose: Not Given Documented by: XIAO Non-Admin Reason: Patient Refused Melatonin (Melatonin 3 Mg Tablet) 3 mg PO BEDTIME PRN PRN Reason: Sleep Memantine (Memantine Hcl 10 Mg Tablet) 10 mg PO BID [facility] Last Admin: 01/16/21 08:40 Dose: Not Given Documented by: XIAO Non-Admin Reason: Patient Refused Mirtazapine (Mirtazapine 7.5 Mg Tablet) 7.5 mg PO BEDTIME [facility] Last Admin: 01/15/21 21:09 Dose: Not Given Documented by: STALIN Non-Admin Reason: Patient Refused Multivitamins/Vitamin C (Multivitamin Tablet) 1 tab PO DAILY [facility] Last Admin: 01/16/21 08:40 Dose: Not Given Documented by: XIAO Non-Admin Reason: Patient Refused Pharmacy Consult (Consult Rx Perform Med Rec) 1 each MISCELLANE ONCE PRN PRN Reason: Consult order Sodium Chloride (0.9 % Sodium Chloride Flush 3 Ml Syringe) 3 ml IVFLUSH QSHIFT [facility] Last Admin: 01/16/21 08:39 Dose: Not Given Documented by: XIAO Non-Admin Reason: IV Running Labs CBC & Chem 7: 01/16/21 05:21 01/16/21 05:21 Labs: Laboratory Results - last 24 hr 01/15/21 01/15/21 01/15/21 14:32 14:32 14:32 MCV 95.8 MCH 30.5 MCHC 31.8 RDW 13.9 Plt Count 180 MPV 12.2 Immature Gran % (Auto) 0.4 Neut % (Auto) 57.3 Lymph % (Auto) 26.7 [place] % (Auto) 9.1 Eos % (Auto) 5.8 H Baso % (Auto) 0.7 Lymph # (Auto) 1.9 [place] # (Auto) 0.6 Eos # (Auto) 0.4 Baso # (Auto) 0.1 Abs Immat Gran (auto) 0.03 Absolute Neuts (auto) 4.0 Absolute Nucleated RBC 0.000 Nucleated RBC % (auto) 0.0 Anion Gap Estim Creat Clear Calc Estimated GFR Random Glucose Lactic Acid 2.9 H* Lactic Acid Fup @ 2Hr Calcium Magnesium Total Bilirubin Direct Bilirubin AST ALT Alkaline Phosphatase Troponin I High Sens 7.6 D B-Natriuretic Peptide 22 Total Protein Albumin Lipase Urine Color Urine Appearance Urine pH Ur Specific [place] Urine Protein Urine Glucose (UA) Urine Ketones Urine Blood Urine Nitrite Ur Leukocyte Esterase Urine RBC Urine WBC Ur Squamous Epith Cells Calcium Oxalate Crystal Amorphous Sediment Urine Bacteria Granular Casts COVID-19 (LAURENT) COVID-19 Clin Com 01/15/21 01/15/21 01/15/21 14:32 14:32 14:33 MCV MCH MCHC RDW Plt Count MPV Immature Gran % (Auto) Neut % (Auto) Lymph % (Auto) [place] % (Auto) Eos % (Auto) Baso % (Auto) Lymph # (Auto) [place] # (Auto) Eos # (Auto) Baso # (Auto) Abs Immat Gran (auto) Absolute Neuts (auto) Absolute Nucleated RBC Nucleated RBC % (auto) Anion Gap Estim Creat Clear Calc Estimated GFR Random Glucose Lactic Acid Lactic Acid Fup @ 2Hr Calcium Magnesium Total Bilirubin Direct Bilirubin AST ALT Alkaline Phosphatase Troponin I High Sens B-Natriuretic Peptide Cancelled Total Protein Albumin Lipase Urine Color DK YELLOW Urine Appearance CLEAR Urine pH 6.0 Ur Specific [place] >= 1.030 H Urine Protein 2+ H Urine Glucose (UA) NEG Urine Ketones 40 Urine Blood NEG Urine Nitrite NEG Ur Leukocyte Esterase NEG Urine RBC 1-4 Urine WBC 1-4 Ur Squamous Epith Cells 1+ Calcium Oxalate Crystal TRACE Amorphous Sediment TRACE Urine Bacteria 3+ Granular Casts 0-2 COVID-19 (LAURENT) Negative COVID-19 Clin Com See Note 01/15/21 01/15/21 01/16/21 15:10 16:46 05:21 MCV 94.9 MCH 30.8 MCHC 32.5 RDW 13.8 Plt Count 141 L MPV 12.2 Immature Gran % (Auto) 0.5 H Neut % (Auto) 40.4 L Lymph % (Auto) 35.8 [place] % (Auto) 9.9 Eos % (Auto) 12.8 H Baso % (Auto) 0.6 Lymph # (Auto) 2.8 [place] # (Auto) 0.8 Eos # (Auto) 1.0 H Baso # (Auto) 0.1 Abs Immat Gran (auto) 0.04 H Absolute Neuts (auto) 3.1 Absolute Nucleated RBC 0.000 Nucleated RBC % (auto) 0.0 Anion Gap 20 Estim Creat Clear Calc 52.8 Estimated GFR 60 Random Glucose 95 Lactic Acid Lactic Acid Fup @ 2Hr 1.8 Calcium 9.6 D Magnesium 2.1 Total Bilirubin 1.0 Direct Bilirubin 0.5 AST 17 ALT 9 Alkaline Phosphatase 65 D Troponin I High Sens B-Natriuretic Peptide Total Protein 6.8 Albumin 4.1 Lipase 36 Urine Color Urine Appearance Urine pH Ur Specific [place] Urine Protein Urine Glucose (UA) Urine Ketones Urine Blood Urine Nitrite Ur Leukocyte Esterase Urine RBC Urine WBC Ur Squamous Epith Cells Calcium Oxalate Crystal Amorphous Sediment Urine Bacteria Granular Casts COVID-19 (LAURENT) COVID-19 Clin Com 01/16/21 05:21 MCV MCH MCHC RDW Plt Count MPV Immature Gran % (Auto) Neut % (Auto) Lymph % (Auto) [place] % (Auto) Eos % (Auto) Baso % (Auto) Lymph # (Auto) [place] # (Auto) Eos # (Auto) Baso # (Auto) Abs Immat Gran (auto) Absolute Neuts (auto) Absolute Nucleated RBC Nucleated RBC % (auto) Anion Gap 17 Estim Creat Clear Calc 69.7 Estimated GFR > 60 Random Glucose 72 Lactic Acid Lactic Acid Fup @ 2Hr Calcium 8.7 D Magnesium Total Bilirubin Direct Bilirubin AST ALT Alkaline Phosphatase Troponin I High Sens B-Natriuretic Peptide Total Protein Albumin Lipase Urine Color Urine Appearance Urine pH Ur Specific [place] Urine Protein Urine Glucose (UA) Urine Ketones Urine Blood Urine Nitrite Ur Leukocyte Esterase Urine RBC Urine WBC Ur Squamous Epith Cells Calcium Oxalate Crystal Amorphous Sediment Urine Bacteria Granular Casts COVID-19 (LAURENT) COVID-19 Clin Com Assessment and Plan (1) Hypernatremia: Status: Acute Assessment and Plan: 75yo female with known history of dementia status post colon cancer with chemotherapy presents with decreased p.o. intake over the last 4 days with increasing confusion. Sodium normalized with half-normal saline. CT of abdomen unremarkable 1. Hypernatremia Sodium normalized with half-normal saline. Given essentially no p.o. intake will switch to D5 half-normal saline. Daughter states patient is back at baseline; ultimately wishes to take her home 2. Dementia Return to baseline. PT to see and offer rehab if appropriate. 3. Hypertension Continue outpatient therapies. 4. DVT prophylaxis Venodyne boots... Full code Further plans based on clinical course and response to therapies Quality Stroke Does the patient have a stroke diagnosis?: No VTE Prior VTE?: No VTE Risk Level:: Medical - moderate - high VTE Device Contraindication: N/A - Device Ordered VTE Drug Contraindication: Treatment Not Indicated
[2021-01-16 11:43] VITALS: BP 124/71; PULSE 64; RESP 18; TEMP 36; O2SAT 98
--- NOTE | 2021-01-16 11:56 | MHC.CM.PN ---
MESSAGE LEFT FOR CLIENT ENGAGEMENT MANAGER @ [phone], REQUESTING ASSISTANCE WITH ASSESSMENT.
--- NOTE | 2021-01-16 12:17 | MHC.CM.PN ---
Addendum entered by Caro Warren 01/16/21 14:22: PATIENT'S DAUGHTER WISHES TO TAKE PATIENT HOME WITH NO INCREASE IN SERVICES. [facility] DOES SEND AN RN TO SEE PATIENT WITHIN 48 HOURS OF ACUTE STAY. AND CAN PERFORM AN ASSESSMENT THEN. Original Note: PATIENT LIVES WITH HER DAUGHTER, WHO SERVICES CAREGIVER PATIENT HAS A CANE, WALKER, AND WHEELCHAIR [facility] ([facility] OFFERS MONTHLY RN VISITS, AND MORE IF NEEDED. PATIENT IS REPORTEDLY GOING TO ME HOME TODAY. CURRENTLY AWAITING CONFIRMATION OF ANY SERVICE NEEDS INCREASE. IMM 01/16 IN CHART
[2021-01-16 13:17] VITALS: BMI 27.9
--- NOTE | 2021-01-16 14:13 | PM.DS ---
DS: Providers Provider Date of Service: 01/16/21 Date of admission: 01/15/21 17:26 Date of discharge: 01/16/21 Primary care physician: Shantell Francis MD DS: Diagnosis Discharge Diagnosis (1) Hypernatremia: Status: Acute DS: Summary Hospital Course Hospital Course: 75-year-old female admitted with poor p.o. intake/failure to thrive in the backdrop of high sodium and known Alzheimer's. She was admitted over night given half normal saline and markedly improved in the morning. She lives at home with her daughter who is her sole medical customer service representative. At this time she is clinically stable and daughter wishes to take her home without services. She is medically acceptable for same Status at Discharge Cognitive/behavioral status at discharge: Dementia at baseline Time Spent with Patient Time attestation: Total time spent providing and/or coordinating discharge services: Discharge coordination time: Greater than 30 minutes Quality: Stroke Does the patient have a stroke diagnosis?: No Physical Exam Vital Signs: Vital Signs: Last Vital Signs Temp 96.8 F 01/16/21 11:43 Pulse 64 01/16/21 11:43 Resp 18 01/16/21 11:43 BP 124/71 01/16/21 11:43 Pulse Ox 98 01/16/21 11:43 Body Mass Index 27.9 HENMT: Other: Membranes moist Resp: Other: Clear to a and P no rales rhonchi or wheezes Cardio: Other: No S4 positive S1-S2 without evidence of S3-S4 murmurs of gallops GI: Other: Soft nontender nondistended with normoactive bowel sounds Extrem: Other: No edema DS: Data Data Completed and Pending Labs on day of discharge: Laboratory Results - last 24 hr 01/15/21 01/15/21 01/15/21 14:32 14:32 14:32 WBC 6.9 RBC 5.51 H D Hgb 16.8 H Hct 52.8 H D MCV 95.8 MCH 30.5 MCHC 31.8 RDW 13.9 Plt Count 180 MPV 12.2 Immature Gran % (Auto) 0.4 Neut % (Auto) 57.3 Lymph % (Auto) 26.7 [place] % (Auto) 9.1 Eos % (Auto) 5.8 H Baso % (Auto) 0.7 Lymph # (Auto) 1.9 [place] # (Auto) 0.6 Eos # (Auto) 0.4 Baso # (Auto) 0.1 Abs Immat Gran (auto) 0.03 Absolute Neuts (auto) 4.0 Absolute Nucleated RBC 0.000 Nucleated RBC % (auto) 0.0 Sodium Potassium Chloride Carbon Dioxide Anion Gap BUN Creatinine Estim Creat Clear Calc Estimated GFR Random Glucose Lactic Acid 2.9 H* Lactic Acid Fup @ 2Hr Calcium Magnesium Total Bilirubin Direct Bilirubin AST ALT Alkaline Phosphatase Troponin I High Sens 7.6 D B-Natriuretic Peptide 22 Total Protein Albumin Lipase Urine Color Urine Appearance Urine pH Ur Specific [place] Urine Protein Urine Glucose (UA) Urine Ketones Urine Blood Urine Nitrite Ur Leukocyte Esterase Urine RBC Urine WBC Ur Squamous Epith Cells Calcium Oxalate Crystal Amorphous Sediment Urine Bacteria Granular Casts COVID-19 (LAURENT) COVID-19 [facility] Com 01/15/21 01/15/21 01/15/21 14:32 14:32 14:33 WBC RBC Hgb Hct MCV MCH MCHC RDW Plt Count MPV Immature Gran % (Auto) Neut % (Auto) Lymph % (Auto) [place] % (Auto) Eos % (Auto) Baso % (Auto) Lymph # (Auto) [place] # (Auto) Eos # (Auto) Baso # (Auto) Abs Immat Gran (auto) Absolute Neuts (auto) Absolute Nucleated RBC Nucleated RBC % (auto) Sodium Potassium Chloride Carbon Dioxide Anion Gap BUN Creatinine Estim Creat Clear Calc Estimated GFR Random Glucose Lactic Acid Lactic Acid Fup @ 2Hr Calcium Magnesium Total Bilirubin Direct Bilirubin AST ALT Alkaline Phosphatase Troponin I High Sens B-Natriuretic Peptide Cancelled Total Protein Albumin Lipase Urine Color DK YELLOW Urine Appearance CLEAR Urine pH 6.0 Ur Specific [place] >= 1.030 H Urine Protein 2+ H Urine Glucose (UA) NEG Urine Ketones 40 Urine Blood NEG Urine Nitrite NEG Ur Leukocyte Esterase NEG Urine RBC 1-4 Urine WBC 1-4 Ur Squamous Epith Cells 1+ Calcium Oxalate Crystal TRACE Amorphous Sediment TRACE Urine Bacteria 3+ Granular Casts 0-2 COVID-19 (LAURENT) Negative COVID-19 [facility] Com See Note 01/15/21 01/15/21 01/16/21 15:10 16:46 05:21 WBC 7.8 RBC 4.87 Hgb 15.0 Hct 46.2 MCV 94.9 MCH 30.8 MCHC 32.5 RDW 13.8 Plt Count 141 L MPV 12.2 Immature Gran % (Auto) 0.5 H Neut % (Auto) 40.4 L Lymph % (Auto) 35.8 [place] % (Auto) 9.9 Eos % (Auto) 12.8 H Baso % (Auto) 0.6 Lymph # (Auto) 2.8 [place] # (Auto) 0.8 Eos # (Auto) 1.0 H Baso # (Auto) 0.1 Abs Immat Gran (auto) 0.04 H Absolute Neuts (auto) 3.1 Absolute Nucleated RBC 0.000 Nucleated RBC % (auto) 0.0 Sodium 151 H Potassium 3.6 Chloride 113 H Carbon Dioxide 22 Anion Gap 20 BUN 29 H D Creatinine 0.91 Estim Creat Clear Calc 52.8 Estimated GFR 60 Random Glucose 95 Lactic Acid Lactic Acid Fup @ 2Hr 1.8 Calcium 9.6 D Magnesium 2.1 Total Bilirubin 1.0 Direct Bilirubin 0.5 AST 17 ALT 9 Alkaline Phosphatase 65 D Troponin I High Sens B-Natriuretic Peptide Total Protein 6.8 Albumin 4.1 Lipase 36 Urine Color Urine Appearance Urine pH Ur Specific [place] Urine Protein Urine Glucose (UA) Urine Ketones Urine Blood Urine Nitrite Ur Leukocyte Esterase Urine RBC Urine WBC Ur Squamous Epith Cells Calcium Oxalate Crystal Amorphous Sediment Urine Bacteria Granular Casts COVID-19 (LAURENT) COVID-19 [facility] Com 01/16/21 05:21 WBC RBC Hgb Hct MCV MCH MCHC RDW Plt Count MPV Immature Gran % (Auto) Neut % (Auto) Lymph % (Auto) [place] % (Auto) Eos % (Auto) Baso % (Auto) Lymph # (Auto) [place] # (Auto) Eos # (Auto) Baso # (Auto) Abs Immat Gran (auto) Absolute Neuts (auto) Absolute Nucleated RBC Nucleated RBC % (auto) Sodium 145 Potassium 3.1 L Chloride 111 H Carbon Dioxide 20 L Anion Gap 17 BUN 19 H Creatinine 0.69 Estim Creat Clear Calc 69.7 Estimated GFR > 60 Random Glucose 72 Lactic Acid Lactic Acid Fup @ 2Hr Calcium 8.7 D Magnesium Total Bilirubin Direct Bilirubin AST ALT Alkaline Phosphatase Troponin I High Sens B-Natriuretic Peptide Total Protein Albumin Lipase Urine Color Urine Appearance Urine pH Ur Specific [place] Urine Protein Urine Glucose (UA) Urine Ketones Urine Blood Urine Nitrite Ur Leukocyte Esterase Urine RBC Urine WBC Ur Squamous Epith Cells Calcium Oxalate Crystal Amorphous Sediment Urine Bacteria Granular Casts COVID-19 (LAURENT) COVID-[address] scan - abdomen: Radiologist's impression: ITS Impressions Abdomen/Pelvis CT 01/15/21 14:02 IMPRESSION: 1. Dramatic decrease in size of right upper pole benign renal cyst. Could this have ruptured? No free intraperitoneal fluid is present. 2. Again seen is an area of round atelectasis right lung increasing in size since 2013 hepatic granulomas, cholecystectomy, right hemicolectomy, colonic diverticulosis without diverticulitis and generalized osteopenia. Chest X-Ray 01/15/21 14:02 IMPRESSION: No acute cardiopulmonary process seen. There is moderate spondylosis mid dorsal spine. Discharge Plan Discharge Patient Disposition: Home Health Service Discharge Diagnosis: Hypernatremia Referrals: Shantell Martinez MD [Primary Care Provider] - 1 Week Discharge Medications: Continued multivitamin [Daily-[place]] Tablet 1 tab PO DAILY RF: 0 lisinopril-hydrochlorothiazide 20-12.5 mg tablet 1 tab PO DAILY RF: 0 donepezil 10 mg tablet 1 tab PO DAILY RF: 0 alendronate 70 mg tablet 1 tab PO QWEEK RF: 0 calcium carbonate-vitamin D3 600 mg(1,500mg) -200 unit tablet 1 tab PO DAILY RF: 0 aspirin 81 mg tablet,delayed release (DR/EC) 1 tab PO DAILY RF: 0 melatonin 1 mg tablet 1 tab PO BEDTIME PRN (Reason: Sleep) RF: 0 memantine 10 mg tablet 1 tab PO BID RF: 0 mirtazapine 7.5 mg tablet 1 tab PO BEDTIME RF: 0 Discharge Orders: Discharge Order (Routine); Ordered 01/16/21 Ordered By: Anup Grimaldo Diet: advance to usual diet Activity on Discharge: As tolerated Stand Alone Forms: Patient Portal Discharge page Care Plan Goals: Maintain and highest level of function Health Concerns: Hydration Plan of Treatment: Encourage fluids Assessment: Hypernatremia resolved
== END 2021-01-16 16:10 | disposition home health service (06) | DRG 641 ==
LOC: HO.ED 17:40 → HO.EDOVER 17:40 → HO.S3 17:55
PROVIDERS: Admitting Provider Hospitalist; Emergency Provider Emergency Medicine; PCP Internal Medicine; Visit Provider Hospitalist
DX: E87.0 Hyperosmolality and hypernatremia (principal); G30.9 Alzheimer's disease, unspecified; E87.2 Acidosis; E86.0 Dehydration; R62.7 Adult failure to thrive; Z68.28 Body mass index [BMI] 28.0-28.9, adult; I10 Essential (primary) hypertension; F02.80 Dementia in other diseases classified elsewhere, unspecified severity, without behavioral disturbance, psychotic disturbance, mood disturbance, and anxiety; Z20.822 Contact with and (suspected) exposure to COVID-19; Z87.891 Personal history of nicotine dependence; Z79.82 Long term (current) use of aspirin; Z79.899 Other long term (current) drug therapy; Z85.038 Personal history of other malignant neoplasm of large intestine
CPT/HCPCS: 36415; 71045; 74177; 80048; 80076; 81001; 83605; 83690; 83735; 83880; 84484; 85025; 87040; 87635; 93005; 99285; Q9967

== ENCOUNTER 2021-01-18 14:31 | Inpatient (IN) | payer MEDICARE, SELFPAY ==
--- NOTE | ~2021-01-18 | XR_ITS ---
EXAMINATION: PORTABLE CHEST AND 2 VIEWS OF THE RIGHT KNEE CLINICAL INFORMATION: Question pneumonia and pain COMPARISON: Chest film dated 01/15/2021 Single image of the chest shows a density in the right midlung zone which may represent an early infiltrate. Left lung is grossly clear. There is no effusion. No failure. Mediastinal contours are within normal limits. 2 views of the right knee demonstrate moderate to marked degenerative changes. There is no acute fracture or dislocation. No effusion is seen. XR/XR knee RT 2V IMPRESSION: Moderate to marked degeneration in the knee. No acute finding. Mild right midlung opacity may represent a developing area of small infiltrate. Follow-up films recommended to assess for resolution. Underlying lesion cannot be excluded
--- NOTE | ~2021-01-18 | CT_ITS ---
EXAMINATION: CT CHEST WITHOUT CONTRAST CLINICAL INFORMATION: Pneumonia? COMPARISON: Chest x-ray earlier the same day TECHNIQUE: Multidetector volumetric CT imaging of the chest was done. Axial MIP volume rendering provided. Sagittal and coronal reformatted images were obtained. This CT examination was performed using dose optimization techniques as appropriate, variously including the following: *Automated exposure control *Adjustment of mA and/or kV according to patient size (this includes techniques or standardized protocols for targeted exams where dose is matched to indication/reason for exam; i.e. extremities or head) *Use of iterative reconstruction technique DLP: 297 mGy-cm FINDINGS: DOOR FRAME BUILDER: Scoliosis. Symmetrically expanded lungs. LUNGS: No focal consolidation or mass. Mild atelectasis. MEDIASTINUM: Normal heart size. No hilar or mediastinal lymphadenopathy. Tortuous aorta. Coronary artery calcification. PLEURA: There is no pleural effusion. No pleural mass or thickening. AXILLA: No lymphadenopathy. UPPER ABDOMEN: Multi lobular, septated 3.8 x 3.1 cm right upper pole cyst. This measure water density and no follow-up is recommended. There are coarse calcifications in the liver. No adrenal mass. OSSEOUS STRUCTURES: Multilevel degenerative changes of the thoracolumbar spine. There are intraosseous hemangiomas T12 and L1. CT/CT chest wo con IMPRESSION: No focal consolidation or mass seen. The right upper lobe opacity seen on the prior study likely represented degenerative arthrosis at the right first costosternal junction.
--- NOTE | ~2021-01-18 | XR_ITS ---
EXAMINATION: PORTABLE CHEST AND 2 VIEWS OF THE RIGHT KNEE CLINICAL INFORMATION: Question pneumonia and pain COMPARISON: Chest film dated 01/15/2021 Single image of the chest shows a density in the right midlung zone which may represent an early infiltrate. Left lung is grossly clear. There is no effusion. No failure. Mediastinal contours are within normal limits. 2 views of the right knee demonstrate moderate to marked degenerative changes. There is no acute fracture or dislocation. No effusion is seen. XR/XR chest 1V IMPRESSION: Moderate to marked degeneration in the knee. No acute finding. Mild right midlung opacity may represent a developing area of small infiltrate. Follow-up films recommended to assess for resolution. Underlying lesion cannot be excluded
[2021-01-18 14:45] VITALS: BP 118/64; PULSE 54; PULSE 77; RESP 18; O2SAT 94; O2SAT 96; BMI 21.9
--- NOTE | 2021-01-18 15:28 | ED.GENADULT ---
HPI - General Adult General Chief complaint: Failure to Thrive Stated complaint: FAILURE TO THRIVE PER EMS Time Seen by Provider: 01/18/21 17:15 Source: patient Mode of arrival: ambulatory Limitations: no limitations History of Present Illness HPI narrative: Patient brought to the ED once again for failing to thrive. Patient admits history of colon cancer as per daughter patient has refused to eat for the past 4 weeks. Patient has dementia. Daughter states patient has not shown any infectious symptoms. Patient has not complained of any chest pain abdominal pain or diarrhea. She states patient was recently admitted for similar presentation of dehydration due to refusing to eat. Related Data Home Medications Medication Instructions Recorded Confirmed alendronate 70 mg tablet 1 tab PO QWEEK 09/04/20 01/15/21 aspirin 81 mg tablet,delayed 1 tab PO DAILY 09/04/20 01/15/21 release calcium carbonate 600 mg (1,500 1 tab PO DAILY 09/04/20 01/15/21 mg)-vitamin D3 200 unit tablet donepezil 10 mg tablet 1 tab PO DAILY 09/04/20 01/15/21 lisinopril 20 1 tab PO DAILY 09/04/20 01/15/21 mg-hydrochlorothiazide 12.5 mg tablet melatonin 1 mg tablet 1 tab PO BEDTIME PRN 09/04/20 01/15/21 memantine 10 mg tablet 1 tab PO BID 09/04/20 01/15/21 multivitamin (Daily-Weston) 1 tab PO DAILY 09/04/20 01/15/21 mirtazapine 7.5 mg tablet 1 tab PO BEDTIME 01/15/21 01/15/21 Allergies Allergy/AdvReac Type Severity Reaction Status Date / Time tuberculin, purified protein Allergy Mild RASH Unverified 01/06/20 17:21 deriva [From TUBERSOL] PPD Allergy Unknown Uncoded 09/23/19 00:00 Review of Systems Review of Systems: Yes all other systems are reviewed and are negative Constitutional: Constitutional: Reports as per HPI and Reports no additional constitutional complaints Eyes: Eyes: Reports as per HPI and Reports no additional eye complaints ENT: Reports system reviewed and no additional complaints, except as documented and Reports as per HPI Cardiovascular: Cardiovascular: Reports as per HPI and Reports no additional cardiovascular complaints Respiratory: Respiratory: Reports as per HPI and Reports no additional respiratory complaints Gastrointestinal: Gastrointestinal: Reports as per HPI and Reports no additional gastrointestinal complaints Genitourinary: Genitourinary: Reports no additional female genitourinary complaints and Reports as per HPI Musculoskeletal: Musculoskeletal: Reports no additional musculoskeletal complaints and Reports as per HPI Neurologic: Reports system reviewed and no additional complaints, except as documented and Reports as per HPI Psychiatric: Psychiatric: Reports no additional psychiatric complaints and Reports as per HPI Comments: dementia. Failure to thrive [facility] Past Medical History Medical History AD (Alzheimer's disease) Arthritis Colon cancer Dementia Depression Diverticulosis Hypertension Surgical History H/O colonoscopy H/O: hysterectomy History of colon surgery Family History Family History Mother Hypertension Diabetes Sister Diabetes Social History Social History Household Members: Family Housing: Apartment Alcohol intake: never Patient Tobacco Use Status: Former Tobacco user Advance Directives: No Advance Directives Information Provided: No Advance Directives Date on File: 01/15/21 service: No Current occupational status: disabled Physical Exam Vital Signs: Vital Signs: Last Vital Signs Temp 99 F 01/18/21 19:32 Pulse 63 01/18/21 19:32 Resp 18 01/18/21 19:32 BP 140/72 H 01/18/21 19:32 Pulse Ox 100 01/18/21 19:32 Body Mass Index 21.9 Const: General: cooperative, healthy appearing, comfortable, no acute distress and well developed HENMT: Head: Yes normal to inspection, Yes No palpable skull fracture present, Yes normocephalic and Yes atraumatic Eyes: General: appearance normal, both eyes and all related structures Neck: Neck: Yes normal visual inspection, Yes full ROM, Yes no lymphadenopathy, Yes no meningeal signs, Yes trachea midline, Yes supple and No tender Chest: Chest palpation & inspection: normal inspection of the chest and normal palpation of entire chest wall Resp: Effort & Inspection: normal respiratory effort and able to speak in complete sentences Auscultation: clear to auscultation bilaterally Cardio: Jugular venous distension: no JVD Heart sounds: S1 normal heart sound present and S2 normal heart sound present GI: Inspection: Yes normal to inspection and No abdominal wall ecchymosis Palpation (GI): Soft to palpation, not firm, nontender, no guarding and not rigid : General: No CVA tenderness and Yes no CVA tenderness Back/Spine/Pelvis: Back: no CVA tenderness, No CVA tenderness and No back tenderness Skin: General skin exam: no rashes or lesions noted and elasticity normal Neuro: Other: Negative facial droop. Negative slurred speech. All extremities equal strength 5+. [id number] rapid hand movement intact. Negative Romberg General: gait normal, tone normal, no meningeal signs and CN's II-XI intact bilaterally Cranial nerves: Yes CN's II-XII intact bilaterally Extrem: General: Yes normal to inspection and Yes full ROM Psych: Appearance: grossly normal, well kempt and not disheveled Course Course Course Narrative: Will do medical evaluation to rule out any signs of dehydration. Fluids ordered Reevaluation(s) Reevaluation #1: Patient electrolytes and blood work are normal. Chest x-ray showed possible pneumonia. Chest CT was done which came back negative for pneumonia. Patient is at her baseline mentally as per family. Still waiting on urine. Time: 20:20 Reevaluation #2: Spoke with daughter again who states visiting nurse recommended patient to be placed in longterm due to daughter not be able to care for patient and needs someone 24 hours to make her eat. Daughter states she is the healthcare proxy and her family is okay with patient being placed in longterm. Physical therapy will be placed for evaluation. customer pricing manager Naty made aware. SIgn out to NIght provider. Patient will be kept overnight for PT therapeutic case manager evaluation. Time: 20:54 Reevaluation #3: Labs were reviewed and potassium 2.7. Patient to be admitted for hypokalemia. Time: 21:44 Medical Decision Making MDM Narrative Medical decision making narrative: Failure to thrive Hypokalemia Lab Data Result diagrams: 01/18/21 16:12 01/18/21 19:55 Labs: Lab Results 01/18/21 01/18/21 01/18/21 Range/Units 16:12 16:12 19:55 WBC 5.9 (4.8-10.8) X10*3/uL RBC 5.12 (4.20-5.50) X10*6/uL Hgb 15.9 (12.0-16.0) g/dl Hct 47.8 H (37-47) % MCV 93.4 (80-98) fL MCH 31.1 (27.0-33.0) pg MCHC 33.3 (31.0-35.0) g/dl RDW 13.6 (11.0-16.0) % Plt Count 140 L (160-400) X10*3/uL MPV 12.0 (9.4-12.3) fL Immature Gran % (Auto) 0.3 (0.0-0.4) % Neut % (Auto) 40.4 L (45-73) % Lymph % (Auto) 35.5 (20-40) % [place] % (Auto) 9.5 (2-11) % Eos % (Auto) 13.5 H (0-4) % Baso % (Auto) 0.8 (0-2) % Lymph # (Auto) 2.1 (1.2-4.9) X10*3/uL [place] # (Auto) 0.6 (0.1-1.2) X10*3/uL Eos # (Auto) 0.8 H (0.0-0.4) X10*3/uL Baso # (Auto) 0.1 (0.0-0.2) X10*3/uL Abs Immat Gran (auto) 0.02 (0.00-0.03) X10*3/uL Absolute Neuts (auto) 2.4 (2.0-8.3) X10*3/uL Absolute Nucleated RBC 0.000 (0.0-0.012) X10*3/uL Nucleated RBC % (auto) 0.0 (0.0-0.2) /100WBC Sodium 142 (135-145) mmol/L Potassium 2.7 L (3.3-5.1) mmol/L Chloride 107 (96-108) mmol/L Carbon Dioxide 22 (22-29) mmol/L Anion Gap 16 (12-20) BUN 12 (9-16) mg/dL Creatinine 0.72 (0.5-1.4) mg/dL Estim Creat Clear Calc 54.1 Estimated GFR > 60 Random Glucose 76 (60-115) mg/dL Calcium 8.6 (8.4-10.2) mg/dL Magnesium 1.9 (1.6-2.6) mg/dL Total Bilirubin 0.9 (0.0-1.0) mg/dL AST 15 (5-31) U/L ALT 9 (0-31) U/L Alkaline Phosphatase 59 (39-117) U/L Total Creatine Kinase 26 (26-140) U/L Troponin I High Sens 6.5 (<3.5-17.0) ng/L Total Protein 5.8 L (6.5-8.0) g/dL Albumin 3.7 (3.5-5.0) g/dL 01/18/21 Range/Units 19:55 WBC (4.8-10.8) X10*3/uL RBC (4.20-5.50) X10*6/uL Hgb (12.0-16.0) g/dl Hct (37-47) % MCV (80-98) fL MCH (27.0-33.0) pg MCHC (31.0-35.0) g/dl RDW (11.0-16.0) % Plt Count (160-400) X10*3/uL MPV (9.4-12.3) fL Immature Gran % (Auto) (0.0-0.4) % Neut % (Auto) (45-73) % Lymph % (Auto) (20-40) % [place] % (Auto) (2-11) % Eos % (Auto) (0-4) % Baso % (Auto) (0-2) % Lymph # (Auto) (1.2-4.9) X10*3/uL [place] # (Auto) (0.1-1.2) X10*3/uL Eos # (Auto) (0.0-0.4) X10*3/uL Baso # (Auto) (0.0-0.2) X10*3/uL Abs Immat Gran (auto) (0.00-0.03) X10*3/uL Absolute Neuts (auto) (2.0-8.3) X10*3/uL Absolute Nucleated RBC (0.0-0.012) X10*3/uL Nucleated RBC % (auto) (0.0-0.2) /100WBC Sodium (135-145) mmol/L Potassium (3.3-5.1) mmol/L Chloride (96-108) mmol/L Carbon Dioxide (22-29) mmol/L Anion Gap (12-20) BUN (9-16) mg/dL Creatinine (0.5-1.4) mg/dL Estim Creat Clear Calc Estimated GFR Random Glucose (60-115) mg/dL Calcium (8.4-10.2) mg/dL Magnesium (1.6-2.6) mg/dL Total Bilirubin (0.0-1.0) mg/dL AST (5-31) U/L ALT (0-31) U/L Alkaline Phosphatase (39-117) U/L Total Creatine Kinase (26-140) U/L Troponin I High Sens 7.2 (<3.5-17.0) ng/L Total Protein (6.5-8.0) g/dL Albumin (3.5-5.0) g/dL ECG Data Interpretation: Normal sinus rhythm. Ventricular rate 62. Pr interval 126. QRS 114. QTC 436. Negative STEMI Discharge Plan Discharge Clinical Impression: Adult failure to thrive, Acute hypokalemia Patient Disposition: Admitted As Inpatient
--- NOTE | 2021-01-18 15:41 | ECG_ITS ---
Test Reason : FTT Blood Pressure : / mmHG Vent. Rate : 062 BPM Atrial Rate : 062 BPM P-R Int : 126 ms QRS Dur : 114 ms QT Int : 430 ms P-R-T Axes : 056 -20 -29 degrees QTc Int : 436 ms Normal sinus rhythm T wave abnormality, consider inferior ischemia Abnormal ECG When compared with ECG of 15-JAN-2021 14:18, No significant change was found Referred By: Deandre Cam Electronically Signed By:IDA WU
[2021-01-18 16:16] LABS: MANUAL DIFF FLAG NO
[2021-01-18 16:18] LABS: Basophils Absolute Auto 0.1 X10*3/uL (0.0-0.2); Basophils Percent Auto 0.8 % (0-2); Eosinophils Absolute Auto 0.8 X10*3/uL (0.0-0.4); Eosinophils Percent Auto 13.5 % (0-4); Hematocrit 47.8 % (37-47); Hemoglobin 15.9 g/dl (12.0-16.0); Imm Gran Abs Auto 0.02 X10*3/uL (0.00-0.03); Imm Gran Pct Auto 0.3 % (0.0-0.4); Lymphocytes Absolute Auto 2.1 X10*3/uL (1.2-4.9); Lymphocytes Percent Auto 35.5 % (20-40); Mean Corpuscular HGB Conc 33.3 g/dl (31.0-35.0); Mean Corpuscular Hemoglobin 31.1 pg (27.0-33.0); Mean Corpuscular Volume 93.4 fL (80-98); Monocytes Absolute Auto 0.6 X10*3/uL (0.1-1.2); Monocytes Percent Auto 9.5 % (2-11); Neutrophils Absolute Auto 2.4 X10*3/uL (2.0-8.3); Neutrophils Percent Auto 40.4 % (45-73); Platelet Count 140 X10*3/uL (160-400); Red Blood Count 5.12 X10*6/uL (4.20-5.50); Red Cell Distribution Width 13.6 % (11.0-16.0); White Blood Count 5.9 X10*3/uL (4.8-10.8)
[2021-01-18] MEDS: 0.9 % Sodium Chloride 1,000 ML 999 ML IV (16:28)
[2021-01-18 16:39] LABS: Troponin-I High Sensitivity 6.5 ng/L (<3.5-17.0)
[2021-01-18 19:32] VITALS: BP 140/72; PULSE 63; RESP 18; TEMP 37.2; O2SAT 100
[2021-01-18 20:20] LABS: Troponin-I High Sensitivity 7.2 ng/L (<3.5-17.0)
[2021-01-18 20:21] LABS: Alanine Aminotransferase 9 U/L (0-31); Albumin Level 3.7 g/dL (3.5-5.0); Alkaline Phosphatase 59 U/L (39-117); Anion Gap 16 (12-20); Aspartate Amino Transferase 15 U/L (5-31); Bilirubin Total 0.9 mg/dL (0.0-1.0); Blood Urea Nitrogen 12 mg/dL (9-16); Calcium 8.6 mg/dL (8.4-10.2); Carbon Dioxide 22 mmol/L (22-29); Chloride 107 mmol/L (96-108); Creatinine Clr Calc Pharmacy 54.1; Estimated Glomerular Filt Rate > 60; Glucose Random 76 mg/dL (60-115); Magnesium 1.9 mg/dL (1.6-2.6); Potassium 2.7 mmol/L (3.3-5.1); Sodium 142 mmol/L (135-145); Total Protein 5.8 g/dL (6.5-8.0)
[2021-01-18] MEDS: Potassium Chloride ER 20 MEQ TAB.ER.PRT 60 MEQ PO (21:40)
[2021-01-18] MEDS: Potassium Chloride/H20 10 MEQ/100 ML PIGGYBACK 100 MEQ IV (22:00)
[2021-01-18 22:25] LABS: Appearance Urine HAZY; Color Urine YELLOW; Glucose Urine UA NEG (NEG); Leukocyte Esterase Urine NEG (NEG); Nitrite Urine NEG (NEG); Specific Gravity - Urine 1.025 (1.005-1.025); Urine Blood NEG (NEG); Urine Ketones 40 MG/DL (NEG); Urine Protein NEG (NEG-TRACE)
--- NOTE | 2021-01-18 22:27 | MHC.CM.PN ---
CM met with patient and daughter. Pt German speaking only. Pt has Alzheimer's dementia. HCP/daughter Geetha Villagran has copy of HCP, but it is not dated. New HCP reviewed, completed, and signed. Pt signed X. Copies given. Uploaded into [facility] and into [facility]. Pt was intially a case management pt,, but now is a pending admission. PCP is Dr. Shantell Francis at [facility]. Pt has [facility] insurance. Daughter does not feel she can care for her mother at home, since she will not eat or drink and doesn't want her to at home. Reviewed with daughter that not eating/drinking can be a progression of her dementia, and that pt may not eat at the [facility] too. Reviewed STR vs LTC. Daughter states that RN from [facility] came to her home today and told her that her mother needs LTC. Daughter is agreeable with LTC placement. Requesting [facility] as first choice and [facility] as second. Referrals made. Daughter given [facility] with 24 facilities. Aware that CM will probably need to refer to more facilities. Daughter aware that her mother will need a Covid swab prior to admission. Pt is fully vaccinated with [employer] on 08/24/20 and 09/13/20. IMM not completed pending admit vs observation status. CM to follow for d/c needs.
[2021-01-18 23:31] VITALS: BP 128/68; PULSE 68; RESP 18; O2SAT 98
--- NOTE | 2021-01-18 23:36 | P.HPHOSP_ITS ---
History of Present Illness Date of Service: 01/18/21 Chief Complaint: Poor oral intake 75-year-old female with a past medical history of hypertension, Alzheimer's dementia, arthritis, history of colon cancer; recent admission to the hospital for failure to thrive/hyponatremia; discharge couple days ago to home presented to the hospital today with a chief complaint of poor oral intake. Per patient's family patient has not been eating for the past 2 days. And appeared dehydrated. Subsequently brought her to the hospital for further evaluation. Patient is alert awake comfortable lying in the bed. Denies any chest pain palpitations. Denies any abdominal pain. Denies any nausea vomiting or diarrhea. Denies any difficulty swallowing Denies any GI or symptoms. Review of all other systems is negative except mentioned above ER course: Per ER team patient noted to have benign exam; labs essentially benign except for hypokalemia 2.7; EKG showed no acute changes; given potassium supplementation. Admitted to the hospital for observation. ER team also spoke to the case management for possible jail placement. [facility] Medical History AD (Alzheimer's disease) Arthritis Colon cancer Dementia Depression Diverticulosis Hypertension Family History Mother Hypertension Diabetes Sister Diabetes Pertinent family history: as mentioned above Surgical History H/O colonoscopy H/O: hysterectomy History of colon surgery Social History Household Members: Family Housing: Apartment Alcohol intake: never Patient Tobacco Use Status: Former Tobacco user Advance Directives: No Advance Directives Information Provided: No Advance Directives Date on File: 01/15/21 service: No Current occupational status: disabled Meds Allergies Allergy/AdvReac Type Severity Reaction Status Date / Time tuberculin, purified protein Allergy Mild RASH Unverified 01/06/20 17:21 deriva [From TUBERSOL] PPD Allergy Unknown Uncoded 09/23/19 00:00 Active Medications: Current Medications Acetaminophen (Acetaminophen 325 Mg Tablet) 650 mg PO Q6H PRN PRN Reason: Pain, Mild (Pain Scale 1-3) Dextrose/Sodium Chloride (D51/2ns) 1,000 mls @ 50 mls/hr IVCONT .Q20H [facility] Magnesium Hydroxide (Milk Of Magnesia 30 Ml Oral.Susp) 30 ml PO DAILY PRN PRN Reason: Constipation Melatonin (Melatonin 3 Mg Tablet) 6 mg PO BEDTIME PRN PRN Reason: Insomnia Sodium Chloride (0.9 % Sodium Chloride Flush 3 Ml Syringe) 3 ml IVFLUSH QSHIFT [facility] Home Medications Medication Instructions Recorded Confirmed Last Taken Type alendronate 70 mg tablet 1 tab PO QWEEK 09/04/20 01/15/21 Unknown History aspirin 81 mg tablet,delayed 1 tab PO DAILY 09/04/20 01/15/21 Unknown History release calcium carbonate 600 mg (1,500 1 tab PO DAILY 09/04/20 01/15/21 Unknown History mg)-vitamin D3 200 unit tablet donepezil 10 mg tablet 1 tab PO DAILY 09/04/20 01/15/21 Unknown History lisinopril 20 1 tab PO DAILY 09/04/20 01/15/21 Unknown History mg-hydrochlorothiazide 12.5 mg tablet melatonin 1 mg tablet 1 tab PO BEDTIME PRN 09/04/20 01/15/21 Unknown History memantine 10 mg tablet 1 tab PO BID 09/04/20 01/15/21 Unknown History multivitamin (Daily-Weston) 1 tab PO DAILY 09/04/20 01/15/21 Unknown History mirtazapine 7.5 mg tablet 1 tab PO BEDTIME 01/15/21 01/15/21 Unknown History Physical Exam Vital Signs and Narrative: Vital Signs: Last Vital Signs Temp 99 F 01/18/21 19:32 Pulse 63 01/18/21 19:32 Resp 18 01/18/21 19:32 BP 140/72 H 01/18/21 19:32 Pulse Ox 100 01/18/21 19:32 Body Mass Index 21.9 Gen: Appears be in no acute distress HEENT: NCAT, Moist mucosa. Pulmonary: Vesicular breath sounds, fair air entry CVS: Normal S1-S2 Abdomen: BS+, Soft, Nontender Extremities: Warm well perfused Neuro: Alert and awake. Grossly nonfocal Results Labs CBC and Chem 7: 01/18/21 16:12 01/18/21 19:55 Labs: Laboratory Results - last 24 hr 01/18/21 01/18/21 01/18/21 16:12 16:12 19:55 MCV 93.4 MCH 31.1 MCHC 33.3 RDW 13.6 Plt Count 140 L MPV 12.0 Immature Gran % (Auto) 0.3 Neut % (Auto) 40.4 L Lymph % (Auto) 35.5 [place] % (Auto) 9.5 Eos % (Auto) 13.5 H Baso % (Auto) 0.8 Lymph # (Auto) 2.1 [place] # (Auto) 0.6 Eos # (Auto) 0.8 H Baso # (Auto) 0.1 Abs Immat Gran (auto) 0.02 Absolute Neuts (auto) 2.4 Absolute Nucleated RBC 0.000 Nucleated RBC % (auto) 0.0 Anion Gap 16 Estim Creat Clear Calc 54.1 Estimated GFR > 60 Random Glucose 76 Calcium 8.6 Magnesium 1.9 Total Bilirubin 0.9 AST 15 ALT 9 Alkaline Phosphatase 59 Total Creatine Kinase 26 Troponin I High Sens 6.5 Total Protein 5.8 L Albumin 3.7 Urine Color Urine Appearance Urine pH Ur Specific [place] Urine Protein Urine Glucose (UA) Urine Ketones Urine Blood Urine Nitrite Ur Leukocyte Esterase 01/18/21 01/18/21 19:55 22:10 MCV MCH MCHC RDW Plt Count MPV Immature Gran % (Auto) Neut % (Auto) Lymph % (Auto) [place] % (Auto) Eos % (Auto) Baso % (Auto) Lymph # (Auto) [place] # (Auto) Eos # (Auto) Baso # (Auto) Abs Immat Gran (auto) Absolute Neuts (auto) Absolute Nucleated RBC Nucleated RBC % (auto) Anion Gap Estim Creat Clear Calc Estimated GFR Random Glucose Calcium Magnesium Total Bilirubin AST ALT Alkaline Phosphatase Total Creatine Kinase Troponin I High Sens 7.2 Total Protein Albumin Urine Color YELLOW Urine Appearance HAZY Urine pH 6.0 Ur Specific [place] 1.025 Urine Protein NEG Urine Glucose (UA) NEG Urine Ketones 40 Urine Blood NEG Urine Nitrite NEG Ur Leukocyte Esterase NEG Imaging Radiologist's Impressions: Impressions Chest X-Ray 01/18/21 15:41 IMPRESSION: Moderate to marked degeneration in the knee. No acute finding. Mild right midlung opacity may represent a developing area of small infiltrate. Follow-up films recommended to assess for resolution. Underlying lesion cannot be excluded Knee X-Ray 01/18/21 15:48 IMPRESSION: Moderate to marked degeneration in the knee. No acute finding. Mild right midlung opacity may represent a developing area of small infiltrate. Follow-up films recommended to assess for resolution. Underlying lesion cannot be excluded Chest CT 01/18/21 17:16 IMPRESSION: No focal consolidation or mass seen. The right upper lobe opacity seen on the prior study likely represented degenerative arthrosis at the right first costosternal junction. Assessment and Plan (1) Acute hypokalemia: Status: Acute 75-year-old female with a past medical history of hypertension, Alzheimer's dementia, arthritis, history of colon cancer; recent admission to the hospital for failure to thrive/hyponatremia; discharge couple days ago to home presented to the hospital today with a chief complaint of poor oral intake. Adult failure to the right: Nutrition follow-up Dysphagia screen Advanced diet as tolerated Hypokalemia: Repleted. Repeat BMP. Monitor on telemetry. In the setting of poor oral intake Magnesium 1.9 History of hypertension: Continue home lisinopril. Hold home hydrochlorothiazide. Will defer to the a.m. team to consider discontinuing hydrochlorothiazide at the time of discharge. History of dementia: Continue home donepezil and memantine. ?Right lung opacity: noted on CXR;CT chest showed- IMPRESSION: No focal consolidation or mass seen. The right upper lobe opacity seen on the prior study likely represented degenerative arthrosis at the right first costosternal junction. DVT prophylaxis: SCD boots Code status: Full code. Discussed with the family at bedside Quality Stroke Does the patient have a stroke diagnosis?: No VTE Prior VTE?: No VTE Risk Level:: Medical - moderate - high VTE Device Contraindication: N/A - Device Ordered VTE Drug Contraindication: Treatment Not Indicated
[2021-01-18 23:53] LABS: Lactic Acid 1.3 mmol/L (0.5-2.0)
[2021-01-19] VITALS (9 sets, daily range): BP systolic 121–177; BP diastolic 64–79; PULSE 57–68; RESP 12–18; TEMP 36.1–36.4; O2SAT 96–98
--- NOTE | 2021-01-19 00:46 | PC.NURSE ---
COVID SWAB OBTAINED. PT REMAINS ALERT, DAUGHTER AT BEDSIDE WITH PT. PT ALERT AND CONFUSED, RESPIRATIONS EASY, N/L. SKIN W/D. WILL CONTINUE TO MONITOR PT.
[2021-01-19 01:00] LABS: COVID-19 Test Negative (Negative)
--- NOTE | 2021-01-19 01:36 | PC.NURSE ---
MED REC DONE.
--- NOTE | 2021-01-19 04:47 | PC.NURSE ---
pt being admitted at this time.
--- NOTE | 2021-01-19 06:56 | PC.NURSE ---
REPORT GIVEN TO DEANDRA LEES.
[2021-01-19 07:00] LABS: MANUAL DIFF FLAG NO
[2021-01-19 07:02] LABS: Basophils Percent Auto 0.5 % (0-2); Eosinophils Absolute Auto 1.1 X10*3/uL (0.0-0.4); Eosinophils Percent Auto 16.7 % (0-4); Hemoglobin 15.2 g/dl (12.0-16.0); Imm Gran Abs Auto 0.01 X10*3/uL (0.00-0.03); Imm Gran Pct Auto 0.2 % (0.0-0.4); Lymphocytes Absolute Auto 2.3 X10*3/uL (1.2-4.9); Lymphocytes Percent Auto 35.3 % (20-40); Mean Corpuscular Volume 93.7 fL (80-98); Mean Platelet Volume 12.1 fL (9.4-12.3); Monocytes Absolute Auto 0.7 X10*3/uL (0.1-1.2); Monocytes Percent Auto 10.6 % (2-11); Neutrophils Absolute Auto 2.4 X10*3/uL (2.0-8.3); Neutrophils Percent Auto 36.7 % (45-73); Platelet Count 140 X10*3/uL (160-400); Red Blood Count 4.91 X10*6/uL (4.20-5.50); Red Cell Distribution Width 13.3 % (11.0-16.0); White Blood Count 6.4 X10*3/uL (4.8-10.8)
--- NOTE | 2021-01-19 07:59 | PC.NURSE ---
Assumed care of patient. Pt is sleeping and appears to be resting comfortably at this time. Pt has family member sleeping at the bedside
--- NOTE | 2021-01-19 08:44 | MHC.CLN ---
RE: CONSULT PT WITH POOR PO X 2 DAYS PER FAMILY DIET RX: 2GM NA -PT MAY BENEFIT FROM LIBERALIZED DIET TO OFFER MORE VARIETY AND INCREASE PO RECOMMEND ADDING ENSURE BID TO INCREASE KCALS SUPPLEMENT TO PROVIDE 700KCALS, 40G PROTEIN MONITOR PO INTAKE AND SUPPLEMENT ACCEPTANCE CLOSELY
[2021-01-19 09:20] LABS: Anion Gap 15 (12-20); Blood Urea Nitrogen 10 mg/dL (9-16); Calcium 8.8 mg/dL (8.4-10.2); Carbon Dioxide 23 mmol/L (22-29); Chloride 106 mmol/L (96-108); Estimated Glomerular Filt Rate > 60; Glucose Random 75 mg/dL (60-115); Sodium 141 mmol/L (135-145)
[2021-01-19] MEDS: lisinopriL 20 MG TABLET PO (09:34)
[2021-01-19] MEDS: Memantine HCl 10 MG TABLET PO ×2 (09:34→21:02)
--- NOTE | 2021-01-19 09:54 | PC.NURSE ---
Pt is awake, took her morning medications but continues to refuse to eat or drink anything. Incontinent care provided.
[2021-01-19] MEDS: Donepezil HCl 5 MG TABLET 10 MG PO (11:07)
[2021-01-19] MEDS: ondansetron HCL 4 MG/2 ML VIAL IVPUSH (11:23)
--- NOTE | 2021-01-19 11:25 | MHC.CM.PN ---
Patient admitted but boarding in the ER. Met with patient, daughter Geetha, and cage unloader. IMM explained and signed. [facility] will be able to offer a bed when insurance auth is obtained. Continue to monitor for d/c needs.
--- NOTE | 2021-01-19 11:34 | PC.NURSE ---
Pt attempted to take Aricept and pt immediately vomited it up and continued to dry heave. PA contacted and pt given IV zofran. pt is now resting comfortably with no additional complaints.
[2021-01-19] MEDS: Potassium Chloride ER 20 MEQ TAB.ER.PRT 60 MEQ PO (12:36)
[2021-01-19 15:19] LABS: Blood Urea Nitrogen 10 mg/dL (9-16); Calcium 8.8 mg/dL (8.4-10.2); Creatinine Clr Calc Pharmacy 60.9; Estimated Glomerular Filt Rate > 60; Glucose Random 76 mg/dL (60-115)
[2021-01-19 15:28] LABS: Anion Gap 15 (12-20); Carbon Dioxide 23 mmol/L (22-29); Chloride 106 mmol/L (96-108); Sodium 141 mmol/L (135-145)
--- NOTE | 2021-01-19 15:36 | P.PNIM_ITS ---
Subjective Subjective Date of Service: 01/19/21 Interval History: seen and examined this morning follow up for hypokalemia, failure to thrive Recent admission for the same. Patient has history of advanced dementia and history was obtained from her daughter at the bedside. Daughter reports that her mother refuses to eat. episode of vomiting in ED this morning Potassium continues to be low today. Review of Systems Review of Systems: Yes Unobtainable due to mental condition Physical Exam Vital Signs: Vital Signs: Last Vital Signs Temp 99 F 01/18/21 19:32 Pulse 63 01/19/21 09:38 Resp 15 01/19/21 09:38 BP 127/64 01/19/21 09:38 Pulse Ox 97 01/19/21 11:08 Body Mass Index 21.9 Const: General: alert and awake Nutritional Appearance: thin HENMT: Head: Yes normocephalic and Yes atraumatic Eyes: Sclerae: sclerae normal Chest: Chest palpation & inspection: normal inspection of the chest Resp: Effort & Inspection: normal respiratory effort and no respiratory distress Cardio: Rate: regular rate Rhythm: regular rhythm GI: Palpation (GI): Soft to palpation and nontender Neuro: Cranial nerves: Yes CN's II-XII intact bilaterally and Yes Bilaterally intact EOM present Extrem: Other: no leg edema Objective Data Active Medications Acetaminophen (Acetaminophen 325 Mg Tablet) 650 mg PO Q6H PRN PRN Reason: Pain, Mild (Pain Scale 1-3) Donepezil HCl (Donepezil Hcl 5 Mg Tablet) 10 mg PO DAILY [facility] Last Admin: 01/19/21 11:07 Dose: 10 mg Documented by: TERA Dextrose/Sodium Chloride (D51/2ns) 1,000 mls @ 50 mls/hr IVCONT .Q20H [facility] Last Admin: 01/19/21 03:38 Dose: Not Given Documented by: ADIS Non-Admin Reason: Med Not Available Potassium Chloride () 10 meq in 100 mls @ 100 mls/hr IV Q1H [facility] Stop: 01/19/21 17:44 Lisinopril (Lisinopril 20 Mg Tablet) 20 mg PO DAILY [facility]; Protocol Last Admin: 01/19/21 09:34 Dose: 20 mg Documented by: TERA Magnesium Hydroxide (Milk Of Magnesia 30 Ml Oral.Susp) 30 ml PO DAILY PRN PRN Reason: Constipation Melatonin (Melatonin 3 Mg Tablet) 6 mg PO BEDTIME PRN PRN Reason: Insomnia Melatonin (Melatonin 3 Mg Tablet) 6 mg PO BEDTIME PRN PRN Reason: Sleep Memantine (Memantine Hcl 10 Mg Tablet) 10 mg PO BID [facility] Last Admin: 01/19/21 09:34 Dose: 10 mg Documented by: TERA Mirtazapine (Mirtazapine 7.5 Mg Tablet) 7.5 mg PO BEDTIME NICOLE Ondansetron HCl (Ondansetron Hcl 4 Mg/2 Ml Vial) 4 mg IVPUSH Q8H PRN PRN Reason: Nausea and Vomiting Last Admin: 01/19/21 11:23 Dose: 4 mg Documented by: TERA Sodium Chloride (0.9 % Sodium Chloride Flush 3 Ml Syringe) 3 ml IVFLUSH QSHIFT [facility] Last Admin: 01/19/21 07:29 Dose: Not Given Documented by: TERA Non-Admin Reason: no 3ml flush Labs CBC & Chem 7: 01/19/21 06:42 01/19/21 14:54 Labs: Laboratory Results - last 24 hr 01/18/21 01/18/21 01/18/21 16:12 16:12 19:55 MCV 93.4 MCH 31.1 MCHC 33.3 RDW 13.6 Plt Count 140 L MPV 12.0 Immature Gran % (Auto) 0.3 Neut % (Auto) 40.4 L Lymph % (Auto) 35.5 [place] % (Auto) 9.5 Eos % (Auto) 13.5 H Baso % (Auto) 0.8 Lymph # (Auto) 2.1 [place] # (Auto) 0.6 Eos # (Auto) 0.8 H Baso # (Auto) 0.1 Abs Immat Gran (auto) 0.02 Absolute Neuts (auto) 2.4 Absolute Nucleated RBC 0.000 Nucleated RBC % (auto) 0.0 Anion Gap 16 Estim Creat Clear Calc 54.1 Estimated GFR > 60 Random Glucose 76 Lactic Acid Calcium 8.6 Magnesium 1.9 Total Bilirubin 0.9 AST 15 ALT 9 Alkaline Phosphatase 59 Total Creatine Kinase 26 Troponin I High Sens 6.5 Total Protein 5.8 L Albumin 3.7 Urine Color Urine Appearance Urine pH Ur Specific [place] Urine Protein Urine Glucose (UA) Urine Ketones Urine Blood Urine Nitrite Ur Leukocyte Esterase COVID-19 ([facility]) COVID-19 Clin Com 01/18/21 01/18/21 01/18/21 19:55 22:10 23:36 MCV MCH MCHC RDW Plt Count MPV Immature Gran % (Auto) Neut % (Auto) Lymph % (Auto) [place] % (Auto) Eos % (Auto) Baso % (Auto) Lymph # (Auto) [place] # (Auto) Eos # (Auto) Baso # (Auto) Abs Immat Gran (auto) Absolute Neuts (auto) Absolute Nucleated RBC Nucleated RBC % (auto) Anion Gap Estim Creat Clear Calc Estimated GFR Random Glucose Lactic Acid 1.3 Calcium Magnesium Total Bilirubin AST ALT Alkaline Phosphatase Total Creatine Kinase Troponin I High Sens 7.2 Total Protein Albumin Urine Color YELLOW Urine Appearance HAZY Urine pH 6.0 Ur Specific [place] 1.025 Urine Protein NEG Urine Glucose (UA) NEG Urine Ketones 40 Urine Blood NEG Urine Nitrite NEG Ur Leukocyte Esterase NEG COVID-19 ([facility]) COVID-19 Clin Com 01/19/21 01/19/21 01/19/21 00:40 06:42 08:57 MCV 93.7 MCH 31.0 MCHC 33.0 RDW 13.3 Plt Count 140 L MPV 12.1 Immature Gran % (Auto) 0.2 Neut % (Auto) 36.7 L Lymph % (Auto) 35.3 [place] % (Auto) 10.6 Eos % (Auto) 16.7 H Baso % (Auto) 0.5 Lymph # (Auto) 2.3 [place] # (Auto) 0.7 Eos # (Auto) 1.1 H Baso # (Auto) 0.0 Abs Immat Gran (auto) 0.01 Absolute Neuts (auto) 2.4 Absolute Nucleated RBC 0.000 Nucleated RBC % (auto) 0.0 Anion Gap 15 Estim Creat Clear Calc 59.0 Estimated GFR > 60 Random Glucose 75 Lactic Acid Calcium 8.8 Magnesium Total Bilirubin AST ALT Alkaline Phosphatase Total Creatine Kinase Troponin I High Sens Total Protein Albumin Urine Color Urine Appearance Urine pH Ur Specific [place] Urine Protein Urine Glucose (UA) Urine Ketones Urine Blood Urine Nitrite Ur Leukocyte Esterase COVID-19 ([facility]) Negative COVID-19 Clin Com See Note 01/19/21 14:54 MCV MCH MCHC RDW Plt Count MPV Immature Gran % (Auto) Neut % (Auto) Lymph % (Auto) [place] % (Auto) Eos % (Auto) Baso % (Auto) Lymph # (Auto) [place] # (Auto) Eos # (Auto) Baso # (Auto) Abs Immat Gran (auto) Absolute Neuts (auto) Absolute Nucleated RBC Nucleated RBC % (auto) Anion Gap 15 Estim Creat Clear Calc 60.9 Estimated GFR > 60 Random Glucose 76 Lactic Acid Calcium 8.8 Magnesium Total Bilirubin AST ALT Alkaline Phosphatase Total Creatine Kinase Troponin I High Sens Total Protein Albumin Urine Color Urine Appearance Urine pH Ur Specific [place] Urine Protein Urine Glucose (UA) Urine Ketones Urine Blood Urine Nitrite Ur Leukocyte Esterase COVID-19 ([facility]) COVID-19 Clin Com Assessment and Plan (1) Acute hypokalemia: Status: Acute (2) Adult failure to thrive: Status: Acute Assessment and Plan: This is a 75-year-old female with history of advanced dementia, colon cancer, hypertension, recent admission for failure to thrive who was brought to the emergency department by her daughter for refusing to eat found to have hypokalemia Hypokalemia Replace p.r.n. Follow BMP N/V CT abdomen from 01/15 with no acute abdominal pathology improved. Failure to thrive Likely related to underlying dementia Will need placement, CM aware Nutrition consult Dementia Continue donepezil, namenda Contiue mirtazapine HTN continue lisinopril hold HCTZ monitor BP closely dvt ppx - mechanical devices attending: dr. alvarenga Quality Stroke Does the patient have a stroke diagnosis?: No VTE Prior VTE?: No VTE Risk Level:: Medical - moderate - high VTE Device Contraindication: N/A - Device Ordered VTE Drug Contraindication: Treatment Not Indicated
[2021-01-19] MEDS: Potassium Chloride/H20 10 MEQ/100 ML PIGGYBACK 100 MEQ IV ×2 (15:44→18:11)
--- NOTE | 2021-01-19 15:47 | MHC.CM.ED ---
Per FADIA Miles, patient's potassium is still low and will be kept overnight. [facility] aware. Continue to monitor for d/c needs.
--- NOTE | 2021-01-19 16:03 | MHC.CM.PN ---
CM met with daughter, Geetha. Pt sleeping. Pt still not eating or drinking. Potassium remain 3.0. Will stay another night. [facility] offered a bed, awaiting auth. CC aware. Daughter aware and agreeable to plan of care. CM will follow for d/c needs.
--- NOTE | 2021-01-19 20:07 | PC.NURSE ---
Second attempt to bring pt up. Delay due to room not being clean. Charge nurse is [place].
[2021-01-19] MEDS: Dextrose 5 % and 0.45 % NaCl 1,000 ML 50 ML IVCONT (20:33)
--- NOTE | 2021-01-19 20:42 | PC.NURSE ---
Report given to unit by previous Rn, Fluids started and patient transport by pct to unit.
[2021-01-19] MEDS: Mirtazapine 7.5 MG TABLET PO (21:02)
[2021-01-20 01:28] VITALS: BMI 23.6
[2021-01-20 03:52] VITALS: BP 106/63; PULSE 60; RESP 16; O2SAT 96
[2021-01-20 08:00] VITALS: BP 124/65; PULSE 58; RESP 18; TEMP 36.3; O2SAT 98
[2021-01-20 08:36] LABS: Anion Gap 13 (12-20); Blood Urea Nitrogen 7 mg/dL (9-16); Calcium 8.5 mg/dL (8.4-10.2); Carbon Dioxide 23 mmol/L (22-29); Chloride 104 mmol/L (96-108); Creatinine Clr Calc Pharmacy 58.1; Estimated Glomerular Filt Rate > 60; Glucose Random 87 mg/dL (60-115); Magnesium 1.9 mg/dL (1.6-2.6); Potassium 3.5 mmol/L (3.3-5.1); Sodium 136 mmol/L (135-145)
--- NOTE | 2021-01-20 09:54 | MHC.CM.PN ---
PT DCD TODAY TO [facility] PTS DAUGHTER ANNAMARIA NOTIFIED OF DC AT 30
--- NOTE | 2021-01-20 10:05 | PM.DS ---
DS: Providers Provider Date of Service: 01/20/21 Date of admission: 01/18/21 23:31 Primary care physician: Unknown Physician Attending physician on discharge: Shantanu Rodriguez Discharging clinician: Naty Villagran DS: Diagnosis Discharge Diagnosis (1) Acute hypokalemia: Status: Acute (2) Adult failure to thrive: Status: Acute (3) Dementia: Status: Acute DS: Summary Hospital Course Hospital Course: HP as per admitting provider 75-year-old female with a past medical history of hypertension, Alzheimer's dementia, arthritis, history of colon cancer; recent admission to the hospital for failure to thrive/hyponatremia; discharge couple days ago to home presented to the hospital today with a chief complaint of poor oral intake. Per patient's family patient has not been eating for the past 2 days.? And appeared dehydrated.? Subsequently brought her to the hospital for further evaluation. Patient is alert awake comfortable lying in the bed.? Denies any chest pain palpitations.? Denies any abdominal pain.? Denies any nausea vomiting or diarrhea. Denies any difficulty swallowing Denies any GI or symptoms. Review of all other systems is negative except mentioned above ER course: Per ER team patient noted to have benign exam; labs essentially benign except for hypokalemia 2.7; EKG showed no acute changes; given potassium supplementation.? Admitted to the hospital for observation.? ER team also spoke to the case management for possible half-way placement . Failure to thrive. Likely secondary to dementia. Seen and evaluated by dietitian with recommendation to liberalize diet adding more variety and more frequent meals, Ensure added to diet. Patient will be transferred to short-term rehab. Dementia. Baseline. Continue donepezil, namenda Hypokalemia. Likely from poor diet.Repleted and resolved. Time Spent with Patient Time attestation: Total time spent providing and/or coordinating discharge services: Discharge coordination time: Greater than 30 minutes Quality: Stroke Does the patient have a stroke diagnosis?: No Physical Exam Vital Signs: Vital Signs: Last Vital Signs Temp 97.4 F 01/20/21 08:00 Pulse 58 01/20/21 08:00 Resp 18 01/20/21 08:00 BP 124/65 01/20/21 08:00 Pulse Ox 98 01/20/21 08:00 Body Mass Index 23.6 Appearing in no acute distress head is normocephalic atraumatic eyes pupils are PERRLA sclera is anicteric mouth throat mucous membranes are intact and moist neck is supple no JVD noted lung sounds are clear to auscultation heart regular rate rhythm positive bowel sounds, abdomen is soft, nontender neuro patient is alert, no focal deficits DS: Data Data Completed and Pending Labs on day of discharge: Laboratory Results - last 24 hr 01/19/21 01/20/21 14:54 08:03 Sodium 141 136 Potassium 3.0 L 3.5 Chloride 106 104 Carbon Dioxide 23 23 Anion Gap 15 13 BUN 10 7 L Creatinine 0.64 0.67 Estim Creat Clear Calc 60.9 58.1 Estimated GFR > 60 > 60 Random Glucose 76 87 Calcium 8.8 8.5 Magnesium 1.9 Discharge Plan Discharge Anticipated Discharge Date/Time: 01/20/21 10:03 Patient Disposition: Xfer SNF Discharge Diagnosis: Failure to thrive Hypokalemia Referrals: [facility] [Outside] - 1 Week Physician,Unknown [Primary Care Provider] - 1 Week Discharge Medications: New lisinopril 20 mg Tablet 20 mg PO DAILY Qty: 30 RF: 0 Continued multivitamin [Daily-[place]] Tablet 1 tab PO DAILY RF: 0 donepezil 10 mg tablet 1 tab PO DAILY RF: 0 aspirin 81 mg tablet,delayed release (DR/EC) 1 tab PO DAILY RF: 0 melatonin 1 mg tablet 1 tab PO BEDTIME PRN (Reason: Sleep) RF: 0 memantine 10 mg tablet 1 tab PO BID RF: 0 fluconazole 100 mg Tablet 100 mg PO DAILY RF: 0 ibuprofen 800 mg tablet 1 tab PO TID RF: 0 mirtazapine 7.5 mg tablet 1 tab PO BEDTIME RF: 0 Discontinued lisinopril-hydrochlorothiazide 20-12.5 mg tablet 1 tab PO DAILY RF: 0 Discharge Orders: Discharge Order (Routine); Ordered 01/20/21 Ordered By: Naty Villagran Activity on Discharge: As tolerated Stand Alone Forms: Patient Portal Discharge page Care Plan Goals: see below Health Concerns: Failure to thrive Hypokalemia Plan of Treatment: Transfer to SNF for rehab Assessment: see discharge summary
== END 2021-01-20 12:30 | disposition skilled nursing facility (03) | DRG 641 ==
LOC: HO.ED 21:45 → HO.EDOVER 23:37 → HO.IMC 01-19 16:47
PROVIDERS: Physician Assistant; Physician Assistant Medical; Admitting Provider Hospitalist; Emergency Provider Emergency Medicine Emergency Medical Services; PCP Internal Medicine; Visit Provider Nurse Practitioner Acute Care
DX: E87.6 Hypokalemia (principal); G30.9 Alzheimer's disease, unspecified; R62.7 Adult failure to thrive; Z68.23 Body mass index [BMI] 23.0-23.9, adult; F02.80 Dementia in other diseases classified elsewhere, unspecified severity, without behavioral disturbance, psychotic disturbance, mood disturbance, and anxiety; Z85.038 Personal history of other malignant neoplasm of large intestine; Z20.822 Contact with and (suspected) exposure to COVID-19; Z79.1 Long term (current) use of non-steroidal anti-inflammatories (NSAID); Z79.82 Long term (current) use of aspirin; Z79.899 Other long term (current) drug therapy
CPT/HCPCS: 36415; 71045; 71250; 73560; 80048; 80053; 81003; 82550; 83605; 83735; 84484; 85025; 87635; 93005; 97162; 99285; J2405

== ENCOUNTER → 2023-12-18 14:38 | Outpatient (RCR) | payer MEDICARE, SELFPAY ==
[2020-09-04 09:50] VITALS: BP 130/61; PULSE 88; RESP 12; TEMP 36.5; O2SAT 96; BMI 28.0
--- NOTE | 2020-09-04 10:06 | P.PNHO_ITS ---
Medical Summary - Medical Summary Date of Service: 09/04/20 Chief complaint: Follow-up for: Stage II colon carcinoma. Medical Summary: DIAGNOSIS: Stage II Colon Carcinoma. CURRENT THERAPY: 1. Status post 6 cycles of modified FOLFOX6 in the adjuvant setting, completed March 27, 2006. 2. Colonoscopy, March 2008, revealed tubular adenoma. 3. Colonoscopy, July 2009, with diverticulitis and benign polyp. 4. Colonoscopy, October 17, 2014, by Dr. Sr revealed diverticulosis. Interval History Interval history: This is a pleasant 74 year-old lady, here for a follow-up visit. Her daughter tells me that she has developed dementia. She has been slowly losing her mind. She is on maximum dose of medication for that. She tells me she has not been doing too well. She denies any CP nor SOB. No fever nor chills. Energy level is not that good. She is currently in a wheelchair. At home she is able to walk with the walker. She has a knee pain. She complains of epigastric abdominal pain nausea vomiting heartburn indigestion. Her bowels are working. No diarrhea. She tells me that she has had fresh blood per rectum on and off. She was scheduled for a colonoscopy however, that had to be postponed on account of the pandemic. She is going to get that rescheduled. She enjoys a good apetite. Her wt. is stable. She is in good spirits. The rest of the ROS is unremarkable. Her daughter who is also her COMPUTER ANIMATOR, takes care of her. Review of Systems - Constitutional Reports no additional constitutional complaints - Eyes Reports no additional eye complaints - ENT Reports no additional ear, nose, mouth, and throat complaints - Cardiovascular Reports no additional cardiovascular complaints - Respiratory Reports no additional respiratory complaints - Gastrointestinal Reports no additional gastrointestinal complaints - Genitourinary Reports no additional female genitourinary complaints - Musculoskeletal Reports no additional musculoskeletal complaints - Integumentary/Breasts Skin/Breast: Reports no additional skin complaints - Neurologic Reports no additional neurologic complaints - Psychiatric Reports no additional psychiatric complaints - Endocrine Reports no additional endocrine complaints - Hematologic/Lymphatic Reports no additional hematologic/lymphatic complaints - Allergic/Immunologic Reports no additional allergic/immunologic complaints [facility] Medical History: Medical History (Last Updated 09/04/20 @ 10:13 by Juani Cesar) AD (Alzheimer's disease) Arthritis Colon cancer Dementia Depression Diverticulosis Hypertension Functional capacity: wheelchair bound Patient : No Family History: Family History (Last Updated 09/04/20 @ 10:01 by Juani Cesar) Mother Hypertension Diabetes Sister Diabetes Surgical History: Surgical History (Last Updated 09/04/20 @ 10:13 by Juani Cesar) H/O colonoscopy H/O: hysterectomy History of colon surgery Social History: Social History (Last Updated 09/04/20 @ 09:57 by Juani eCsar) Alcohol History: Alcohol intake: former Alcohol History Details: Alcohol intake frequency: does not drink Tobacco History: Smoking Status: Never smoker Substance Use History: Use of substances other than those prescribed or required for medical reasons : No Nutrition Assessment: Patient : No Smoking status: Never smoker Oncology Screenings - ECOG Performance Status ECOG Performance Status: 2 Home Medications and Allergies Home Medications Medication Instructions Recorded Confirmed Type acetaminophen [Mapap Arthritis 2 tab PO Q8H PRN 09/04/20 09/04/20 History Pain] alendronate 1 tab PO QWEEK 09/04/20 09/04/20 History aspirin 1 tab PO DAILY 09/04/20 09/04/20 History calcium carbonate-vitamin D3 1 tab PO DAILY 09/04/20 09/04/20 History donepezil 1 tab PO DAILY 09/04/20 09/04/20 History lisinopril-hydrochlorothiazide 1 tab PO DAILY 09/04/20 09/04/20 History melatonin 1 tab PO BEDTIME 09/04/20 09/04/20 History memantine 1 tab PO BID 09/04/20 09/04/20 History multivitamin [Daily-Weston] 1 tab PO DAILY 09/04/20 09/04/20 History Allergies Allergy/AdvReac Type Severity Reaction Status Date / Time tuberculin, purified protein Allergy Mild RASH Unverified 01/06/20 17:21 deriva [From TUBERSOL] PPD Allergy Unknown Uncoded 09/23/19 00:00 Exam Vital signs: Vital Signs Temp 97.7 F 09/04/20 09:50 Pulse 88 09/04/20 09:50 Resp 12 09/04/20 09:50 BP 130/61 09/04/20 09:50 Pulse Ox 96 09/04/20 09:50 Intake & Output 05/16/21 05/17/21 05/17/21 18:59 06:59 18:59 Other: Weight 74 kg [place] Weight in Grams 53630 Weight 74 kg Body Mass Index 28.0 - Constitutional Present: no acute distress - Routine HEENT Exam Head: Present: normal inspection Eye: Present: normal appearance ENT: Present: mucous membranes moist - Routine Neck Exam Present: full ROM - Routine Respiratory Exam Present: CTAB - Routine Cardiovascular Exam Cardiovascular: Present: RRR, S1, S2 - Routine Abdominal Exam Present: soft, nontender - Routine Rectal Exam Patient deferred: digital exam - Routine Extremities Exam Present: nontender - Routine Back/Spine/Pelvis Exam Back/Spine: Present: full ROM - Routine Skin Exam Present: intact - Routine Neurological Exam Present: alert, oriented X3 - Routine Psychiatric Exam Present: normal affect Data - Labs CBC & Chem 7: 09/04/20 09:51 09/04/20 09:51 Progress Note: A/P (1) Colon cancer Status: Acute Assessment and plan: 74 year-old lady with history of Colon Carcinoma diagnosed in 2005. She had surgery, followed by 6 cycles of modified FOLFOX6 in the adjuvant setting. She remains in remission. Her last colonoscopy was in September of [address] Sr, which simply revealed diverticulosis. She has developed dementia. Other than that she is doing very well. No still gets intermittent GI bleeding, likely hemorrhoidal. CEA level: 2. PLAN: She has been seen by Dr. Hyman for surveillance colonoscopy. She was due in April of 2019, however it will be done later in the year, once the lock-down is over. Her daughter will call to reschedule. In the meantime she will continue to be followed along. I will keep an eye on her CEA level. She will return in 12 months for a followup visit. She will call me for any problems prior to that time. Thank you, CC: Dr. Shantell White. Dr. Anna Hyman. - Time Spent With Patient Total time spent is greater than 50% in coordination of care (as documented) at patient's floor/unit and/or counseling patient: 25 - 35 minutes
[2020-09-04 10:14] LABS: MANUAL DIFF FLAG NO
[2020-09-04 10:18] LABS: Basophils Absolute Auto 0.1 X10*3/uL (0.0-0.2); Basophils Percent Auto 0.7 % (0-2); Eosinophils Absolute Auto 0.6 X10*3/uL (0.0-0.4); Eosinophils Percent Auto 8.7 % (0-4); Hemoglobin 14.6 g/dl (12.0-16.0); Imm Gran Abs Auto 0.02 X10*3/uL (0.00-0.03); Imm Gran Pct Auto 0.3 % (0.0-0.4); Lymphocytes Absolute Auto 2.5 X10*3/uL (1.2-4.9); Lymphocytes Percent Auto 33.4 % (20-40); Mean Corpuscular HGB Conc 31.7 g/dl (31.0-35.0); Mean Corpuscular Hemoglobin 30.8 pg (27.0-33.0); Monocytes Absolute Auto 0.4 X10*3/uL (0.1-1.2); Monocytes Percent Auto 5.9 % (2-11); Neutrophils Absolute Auto 3.8 X10*3/uL (2.0-8.3); Platelet Count 273 X10*3/uL (160-400); Red Blood Count 4.74 X10*6/uL (4.20-5.50); Red Cell Distribution Width 12.4 % (11.0-16.0); White Blood Count 7.3 X10*3/uL (4.8-10.8)
[2020-09-04 10:43] LABS: Alanine Aminotransferase 13 U/L (0-31); Albumin Level 4.2 g/dL (3.5-5.0); Alkaline Phosphatase 90 U/L (39-117); Anion Gap 14 (12-20); Aspartate Amino Transferase 13 U/L (5-31); Bilirubin Total 0.6 mg/dL (0.0-1.0); Blood Urea Nitrogen 13 mg/dL (9-16); Calcium 9.6 mg/dL (8.4-10.2); Carbon Dioxide 27 mmol/L (22-29); Chloride 104 mmol/L (96-108); Creatinine Clr Calc Pharmacy 48.6; Estimated Glomerular Filt Rate 56; Glucose Random 180 mg/dL (60-115); Sodium 141 mmol/L (135-145); Total Protein 7.2 g/dL (6.5-8.0)
--- NOTE | 2020-09-04 11:03 | MHC.HEMONCMA ---
Pt present to f/u on colon cancer. History reviewed, labs drawn and pt to return in 6 months.
== END | disposition home or self-care (01) ==
LOC: HO.ONC 09-04 09:31
PROVIDERS: Visit Provider Internal Medicine Medical Oncology
DX: Z85.038 Personal history of other malignant neoplasm of large intestine (principal); Z92.21 Personal history of antineoplastic chemotherapy
CPT/HCPCS: 36415; 80053; 82378; 85025; 99214